=== PATIENT | female | born 1955 | race Caucasian/White ===

== ENCOUNTER → 2021-04-20 13:20 | Outpatient (CLI) | payer MEDICARE, SELFPAY ==
--- NOTE | ~2021-04-20 | MM_ITS ---
EXAMINATION: MM screening [facility] BI w wero HISTORY: Screening TECHNIQUE: Craniocaudal and mediolateral oblique 3-D tomosynthesis images were obtained and synthetic 2-D images were generated. CAD analysis was submitted and interpreted. COMPARISON: Comparison to multiple prior studies sequentially, with oldest reviewed study dated 03/2013. BREAST PARENCHYMAL COMPOSITION: There are scattered areas of fibroglandular density. FINDINGS: There is no evidence of suspicious mass, calcification, or architectural distortion to sugg est malignancy in either breast. There has been no suspicious interval change. IMPRESSION: 1. No mammographic evidence of malignancy. 2. Recommend routine screening mammography in one year. BI-RADS Category 1: Negative Reviewed, dictated and finalized at location A.
== END ==
PROVIDERS: Visit Provider Obstetrics & Gynecology
DX: Z12.31 Encounter for screening mammogram for malignant neoplasm of breast (principal)
CPT/HCPCS: 77063; 77067

== ENCOUNTER → 2022-06-22 15:16 | Outpatient (CLI) | payer MEDICARE, SELFPAY ==
--- NOTE | ~2022-06-22 | MM_ITS ---
EXAMINATION: MM screening [facility] BI w wero HISTORY: Screening mammogram TECHNIQUE: Craniocaudal and mediolateral oblique 3-D tomosynthesis images were obtained and synthetic 2-D images were generated. CAD analysis was submitted and interpreted. COMPARISON: 04/12/2021, 07/04/2019, 08/15/2017 bilateral screening mammogram examinations BREAST PARENCHYMAL COMPOSITION: There are scattered areas of fibroglandular density. FINDINGS: There is no evidence of suspicious mass, calcification, or architectural distortion to sugg est malignancy in either breast. There has been no suspicious interval change. IMPRESSION: 1. No mammographic evidence of malignancy. 2. Recommend routine screening mammography in one year. BI-RADS Category 1: Negative Reviewed, dictated and finalized at location A. EY AND MAPPING TECHNICIAN
--- NOTE | ~2022-06-22 | DEXA_ITS ---
Bone Density Report Name: ANJU HORNE Age: 67 Sex: Female Ethnicity: White Date of : 1955 Indication: postmenopausal; screening for osteoporosis; parental hip fracture; height loss; history of glucocorticoids; prior fracture; hysterectomy; Referring Provider: Justus, Job Root Study: Bone densitometry was performed. Exam Date: June 22, 2022 Accession number: [id number] Bone Density: Region BMD T-score Z-score Classification AP Spine (L1, L2) 1.314 3.0 5.0 Normal Femoral Neck (Right) 0.769 -0.7 1.0 Normal Total Hip (Right) 0.956 0.1 1.6 Normal World Health Organization criteria for BMD impression classify patients as: Normal (T-score at or above -1.0), Osteopenia (T-score between -1.0 and -2.5), or Osteoporosis (T-score at or below -2.5). 10-year Fracture Risk: FRAX not reported because: All T-scores for Spine Total, Hip Total, Femoral Neck at or above -1.0 Previous Exams: Region Exam Age BMD T-score BMD Change BMD Change Date g/cm2 vs Baseline vs Previous AP Spine(L1, L2) 06/22/2022 67 1.314 3.0 -0.085* -0.064* 07/04/2019 64 1.378 3.6 -0.021 -0.021 08/07/2009 54 1.399 3.8 Total Hip(Right) 06/22/2022 67 0.956 0.1 -0.158* 0.023 07/04/2019 64 0.933 -0.1 -0.181* -0.181* 08/07/2009 54 1.114 1.4 *Denotes significance at 95% confidence level, LSC for AP Spine = 0.022 g/cm2, LSC for Total Hip = 0.027 g/cm2 Clinical Information Provided by Patient: Has had a low trauma fracture Parent has had a hip fracture Has taken Glucocorticoids Has used the following medications: Vitamin D, MTV Has the following medical conditions: Hysterectomy Patient maximum height was 65.5 Menopause Age: 44 No regular weight bearing exercise Drinks caffeinated beverages Onset of menses at age 10 Number of children 2 Impression: The patient has normal bone mass. The patient has risk factors, including: parental hip fracture, previous fracture, history of glucocorticoid therapy. The BMD for the AP Spine(L1, L2) decreased, changing by -0.064 since the last DXA exam. Discussion: BONE DENSITY IS ABOVE THE MINIMUM DESIRABLE LEVEL AT ALL SKELETAL SITES TESTED. This patient?s bone mineral density is above the minimum desirable level (T-score -1.0 or better) at all sites measured. The patient should follow a healthful lifestyle (good nutrition with adequate calcium and vitamin D, and appropriate weight-bearing exercise). Follow-Up: Consider repeating this
== END ==
PROVIDERS: PCP Obstetrics & Gynecology; Visit Provider Obstetrics & Gynecology
DX: Z12.31 Encounter for screening mammogram for malignant neoplasm of breast (principal); Z78.0 Asymptomatic menopausal state
CPT/HCPCS: 77063; 77067; 77080

== ENCOUNTER 2024-03-21 12:08 | Outpatient (CLI) | payer MEDICARE, SELFPAY ==
[2024-03-21 12:27] LABS: Basophils Percent Auto 0.5 % (0.2-1.2); Eosinophils Absolute Auto 0.4 K/mm3 (0-0.3); Hematocrit 42.9 % (37.0-47.0); Hemoglobin 14.1 g/dL (12.0-15.0); Immature Granulocyte Absolute 0.03 K/mm3 (0.00-0.031); Immature Granulocyte Percent A 0.3 % (0-0.5); Lymphocytes Absolute Auto 1.87 K/mm3 (0.9-3.2); Lymphocytes Percent Auto 21.5 % (18.3-44.2); Mean Corpuscular HGB Conc 32.9 g/dl (32-36); Mean Corpuscular Hemoglobin 28.5 pg (26-34); Mean Corpuscular Volume 86.8 fl (80-100); Mean Platelet Volume 9.3 fl (7.4-10.4); Monocytes Absolute Auto 0.5 K/mm3 (0.1-0.6); Monocytes Percent Auto 5.3 % (2.6-8.5); Neutrophils Absolute Auto 5.9 K/mm3 (1.3-6.7); Neutrophils Percent Auto 67.4 % (45.5-73.1); Platelet Count Result 294 k/mm3 (150-375); Red Blood Count 4.94 M/mm3 (4.2-5.4); Red Cell Distribution Width 14.5 % (11.5-14.5); White Blood Count 8.7 K/mm3 (4.5-10.0)
[2024-03-21 12:49] LABS: Alanine Aminotransferase 19 U/L (6-35); Albumin Level 4.2 g/dL (3.5-5.1); Alkaline Phosphatase 72 U/L (38-126); Anion Gap 10 mmol/L (4-12); Aspartate Amino Transferase 36 U/L (14-36); Bilirubin,Total 0.8 mg/dL (0.2-1.3); Blood Urea Nitrogen 15 mg/dL (7-17); Calcium 8.8 mg/dL (8.4-10.2); Carbon Dioxide 27 mmol/L (22-30); Chloride 102 mmol/L (98-107); Estimated Glomerular Filt Rate > 60; Glucose 98 mg/dL (65-110); Potassium 4.3 mmol/L (3.4-5.0); Sodium 139 mmol/L (137-145)
== END 2024-03-21 12:09 | disposition home or self-care (01) ==
LOC: ANHLAB 12:13
PROVIDERS: PCP Internal Medicine; Visit Provider Physician Assistant Surgical
DX: M17.0 Bilateral primary osteoarthritis of knee (principal); Z79.1 Long term (current) use of non-steroidal anti-inflammatories (NSAID)
CPT/HCPCS: 36415; 80053; 85025

== ENCOUNTER 2024-05-24 08:02 | Outpatient (CLI) | payer MEDICARE, SELFPAY ==
[2024-05-24 08:36] LABS: Alanine Aminotransferase 17 U/L (6-35); Albumin Level 3.7 g/dL (3.5-5.1); Alkaline Phosphatase 56 U/L (38-126); Anion Gap 7 mmol/L (4-12); Aspartate Amino Transferase 31 U/L (14-36); Bilirubin,Total 0.7 mg/dL (0.2-1.3); Blood Urea Nitrogen 15 mg/dL (7-17); Calcium 8.5 mg/dL (8.4-10.2); Carbon Dioxide 27 mmol/L (22-30); Chloride 106 mmol/L (98-107); Cholesterol 143 mg/dL (0-200); Estimated Glomerular Filt Rate > 60; Glucose 101 mg/dL (65-110); HDL Direct 46 mg/dL; Sodium 140 mmol/L (137-145); Triglycerides 102 mg/dL (<150)
[2024-05-24 08:47] LABS: LDL Cholesterol Direct 53 mg/dL
[2024-05-24 08:51] LABS: Hemoglobin A1C 5.6 % (<5.7)
[2024-05-24 09:18] LABS: Vitamin D 25 Hydroxy 30.8 ng/mL
== END 2024-05-24 08:03 | disposition home or self-care (01) ==
LOC: ANHLAB 08:05
PROVIDERS: PCP Internal Medicine; Visit Provider Internal Medicine
DX: E55.9 Vitamin D deficiency, unspecified (principal); I10 Essential (primary) hypertension; R73.9 Hyperglycemia, unspecified
CPT/HCPCS: 36415; 80053; 80061; 82306; 83036

== ENCOUNTER 2024-06-12 12:22 | Outpatient (CLI) | payer MEDICARE, SELFPAY ==
--- NOTE | ~2024-06-12 | XR_ITS ---
CHEST RADIOGRAPH, PA AND LATERAL CLINICAL HISTORY: COUGH x 3 mos . COMPARISON: None available TECHNIQUE: PA and lateral views of the chest. FINDINGS The cardiomediastinal silhouette is partially obscured. Increased interstitial markings are identified bilaterally, findings suggesting mild pulmonary vascul ar congestion. Patchy opacification of the left mid to lower lung field, findings suggesting early infiltrate for wh ich clinical correlation is needed. The remainder of the lungs are clear. Visualized osseous structures and soft tissues are unremarkable. IMPRESSION: Mild pulmonary vascular congestion with patchy opacification in the left mid to lower lung field for which an early infiltrate is suspected. Reviewed, dictated and finalized at location A. CHER SULFITE PULP
== END 2024-06-12 12:23 | disposition home or self-care (01) ==
PROVIDERS: PCP Internal Medicine; Visit Provider Internal Medicine
DX: R91.8 Other nonspecific abnormal finding of lung field (principal); R05.3 Chronic cough
CPT/HCPCS: 71046

== ENCOUNTER 2024-06-14 12:23 | Outpatient (CLI) | payer MEDICARE, SELFPAY ==
[2024-06-14 13:29] LABS: NT Pro B Type Natriuretic Pept 305 pg/mL (19.9-100)
[2024-06-16 04:38] LABS: Alpha-1-Antitrypsin, QN 165 mg/dL (83-199)
[2024-06-18 15:13] LABS: NIL 0.03 IU/mL; Quantiferon TB Plus, 1T NEGATIVE (NEGATIVE)
== END 2024-06-14 12:24 | disposition home or self-care (01) ==
PROVIDERS: PCP Internal Medicine; Visit Provider Nurse Practitioner
DX: R06.09 Other forms of dyspnea (principal)
CPT/HCPCS: 36415; 82103; 83880; 86480; 89190

== ENCOUNTER 2024-06-28 14:43 | Outpatient (CLI) | payer MEDICARE, SELFPAY ==
--- NOTE | 2024-07-01 20:14 | P.PCNPFT_ITS ---
PFT Procedure Performed PFT Procedure Performed Spirometry with Pre/Post Bronchodilator Plethysmography (Lung Vol) Diffusing Cap (DLCO) Flow Vol Loop PFT Interpretation DOS: 06/28/2024 REQUESTING: Roshni Delacruz NP REASON FOR TESTING: Dyspnea PULMONARY FUNCTION TESTS Results are reliable and reproducible. Repeatability of spirometry FEV1 maneuver pre and post bronchodilator is Grade B. Spirometry: The pre-bronchodilator FEV1 is 1.25 L, 56%, decreased. The pre- bronchodilator FVC is 1.61 L, 55%, decreased. The FEV1/FVC ratio is 78%, normal. After bronchodilator, the FEV1 is 1.27 L, 56% +2%. The post- bronchodilator FVC is 1.57 L, 54% -2%. The FEV1/FVC ratio is 81%. Lung volumes: The total lung capacity is 4.03 L, 78%, decreased, consistent with a restrictive pattern. The residual volume is 2.38 L, 106%, normal. The RV/TLC is 59%, elevated consistent with air trapping. Airway resistance is normal. Diffusion: DLCO is 8.7, 42%, severely decreased. The DLCO/VA is 3.75, 89%, normal. Flow volume loop: The flow volume loop has a reduced size consistent with restriction. IMPRESSION: This study shows a mild restrictive ventilatory impairment without obstruction, no response to bronchodilator, mild air trapping, and a severe diffusion impairment which normalizes for alveolar volume. No prior studies for comparison. Bing Stroud MD
== END 2024-06-28 14:44 | disposition home or self-care (01) ==
LOC: ANHPFT 14:46
PROVIDERS: PCP Internal Medicine; Visit Provider Nurse Practitioner
DX: R05.3 Chronic cough (principal)
CPT/HCPCS: 94060; 94726; 94729

== ENCOUNTER 2024-07-04 12:01 | Outpatient (CLI) | payer MEDICARE, SELFPAY ==
--- NOTE | ~2024-07-04 | XR_ITS ---
EXAMINATION: XR sinus min 3V DATE: 07/04/2024 12:21 INDICATION: Fever. Cough and shortness of breath. TECHNIQUE: 5 views of the paranasal sinuses were obtained. COMPARISON: None. FINDINGS: Alignment is normal. No fracture. There is mucosal thickening in right maxillary sinus. IMPRESSION: 1. Mucosal thickening in right maxillary sinus. Reviewed, dictated and finalized at location A. FIELD PERSON
== END 2024-07-04 12:02 | disposition home or self-care (01) ==
PROVIDERS: PCP Internal Medicine; Visit Provider Nurse Practitioner
DX: J32.0 Chronic maxillary sinusitis (principal); R05.3 Chronic cough
CPT/HCPCS: 70220

== ENCOUNTER 2024-07-11 12:56 | Outpatient (CLI) | payer MEDICARE, SELFPAY ==
--- NOTE | ~2024-07-11 | MM_ITS ---
EXAMINATION: MM screening [facility] BI w wero HISTORY: Screening TECHNIQUE: Craniocaudal and mediolateral oblique 3-D tomosynthesis images were obtained and synthetic 2-D images were generated. CAD analysis was submitted and interpreted. COMPARISON: Comparison to multiple prior studies sequentially, with oldest reviewed study dated 06/25. BREAST PARENCHYMAL COMPOSITION: Not dense: There are scattered areas of fibroglandular density. FINDINGS: There is no evidence of suspicious mass, calcification, or architectural distortion to sugg est malignancy in either breast. There has been no suspicious interval change. IMPRESSION: 1. No mammographic evidence of malignancy. 2. Recommend routine screening mammography in one year. BI-RADS Category 1: Negative Reviewed, dictated and finalized at location B. RATORY AIDE
--- NOTE | ~2024-07-11 | DEXA_ITS ---
Bone Density Report Name: ANJU HORNE Age: 69 Sex: Female Ethnicity: White Date of : 1955 Indication: postmenopausal; screening for osteoporosis; parental hip fracture; prior fracture; hysterectomy; Referring Provider: TUNG, STAN Gross Study: Bone densitometry was performed. Exam Date: July 11, 2024 Accession number: [id number] Bone Density: Region BMD T-score Z-score Classification AP Spine(L1, L2, L3) 1.351 3.0 5.2 Normal Femoral Neck (Right) 0.745 -0.9 0.9 Normal Total Hip (Right) 0.964 0.2 1.8 Normal World Health Organization criteria for BMD impression classify patients as: Normal (T-score at or above -1.0), Osteopenia (T-score between -1.0 and -2.5), or Osteoporosis (T-score at or below -2.5). Clinical Information Provided by Patient: Has had a low trauma fracture Parent has had a hip fracture Has used the following medications: Vitamin D, Calcium Has the following medical conditions: Hysterectomy Patient maximum height was 63 No regular weight bearing exercise Drinks caffeinated beverages Onset of menses at age 10 Number of children 2 Impression: The patient has normal bone mass. The patient has risk factors, including: parental hip fracture, previous fracture. Discussion: BONE DENSITY IS ABOVE THE MINIMUM DESIRABLE LEVEL AT ALL SKELETAL SITES TESTED. This patient?s bone mineral density is above the minimum desirable level (T-score -1.0 or better) at all sites measured. The patient should follow a healthful lifestyle (good nutrition with adequate calcium and vitamin D, and appropriate weight-bearing exercise). Follow-Up: Consider repeating this study in 5 years or sooner if there is some new clinical indication. Reported by: CELINA on 07/11/2024 1:30:00 PM. Reviewed, dictated and finalized at location A.
== END 2024-07-11 12:57 | disposition home or self-care (01) ==
LOC: CHSIMG 12:58
PROVIDERS: PCP Internal Medicine; Visit Provider Internal Medicine
DX: Z12.31 Encounter for screening mammogram for malignant neoplasm of breast (principal); Z78.0 Asymptomatic menopausal state; Z13.820 Encounter for screening for osteoporosis
CPT/HCPCS: 77063; 77067; 77080

== ENCOUNTER 2024-08-22 13:02 | Outpatient (CLI) | payer MEDICARE, SELFPAY ==
--- NOTE | ~2024-08-22 | CT_ITS ---
EXAMINATION: CT sinus wo con DATE: 08/22/2024 13:33 INDICATION: Chronic sinusitis. TECHNIQUE: Computed tomography (CT) of the paranasal sinuses was performed without intravenous contra st. Iterative reconstruction technique was employed. The dose-length product was 295.03 mGy-cm. COMPARISON: Sinuses radiographs 07/04/2024 FINDINGS: The frontal sinuses are clear. There is mild mucosal thickening in the bilateral ethmoid si nuses. The sphenoid sinuses are clear. There is dependent fluid and mild mucosal thickening in right maxillary sinus. There is mild mucosal thickening in left maxillary sinus. Right ostiomeatal unit is occluded. Left ostiomeatal unit is patent. There are bilateral Fredo cells. The middle turbinates ar e partially paradoxical. There is rightward deviation of the nasal septum. IMPRESSION: 1. Acute sinusitis. 2. Rightward deviation of the nasal septum. Reviewed, dictated and finalized at location A. [facility]
--- OUTSIDE RECORDS SUMMARY | 2024-08-22 13:50 | XMS_ITS | Continuity of Care Document ---
Author Organization [facility] Address [address] [place] [address] Phone Care Team Providers Care Bottle Selector Name Role Phone Jason Ring DO Unavailable Unavailable Advance Directives Directive Yes / No Effective Date File Name No Information Encounters Encounter Description Practice Location Reason(s) For Visit Diagnoses Date Provider Providers Copied on Encounter [facility], [address], [place], [place], [id number], tel:[phone] [facility] No Information Jhonathan Gonsales. [address] [place], [address], . tel:[phone] Referring Provider: Erich Baldwin, [address], [place], [address]. tel:[phone] Family History Family Member Type Diagnosis Age At Onset No Information Payers Payer name Insurance type Covered constitution party ID Authoriza tion(s) No Information Social History Type Description Quantity Date Captured Comments Sex Female Smoking Status No Information Chief Complaint And Reason For Visit No Information Reason For Referral Reason For Referral No Information History Of Present Illness Encounter Date Complaint History Of Prese nt Illness No Information Functional Status Date Functional Assessmen t No Information Instructions Date Instruction Additional Infor mation No Information Assessments Type Assessment Date No Information Patient Care Teams Name Effective Dates (start - stop) Status Members No Information
--- OUTSIDE RECORDS SUMMARY | 2024-08-22 13:50 | XMS_ITS | Clinical Summary ---
Author Organization [facility] [employer] Address [address] [place] [address] Care Team Providers Care Panel Cutter Name Role Phone Raul Fernandes MD Primary Care Provider [phone] Job Jerome MD Unavailable [phone] Source Comments [facility],non-owned Affiliates and Associated Physician Practices is amultiple site organization consisting of ambulatory clinics and hospital sitesin [place], [place], [place] and [place]. This disclosure is being madepursuant to the Care Everywhere program and may not contain all information available regarding this patient. Last updated 18.[facility] Allergies Active Allergy Reactions Criticality Noted Date Comments Ciprofloxacin Unknown 06/17/2019 Medications * Be aware that medications may not be up to date on this document. Alwaysverify current medications with the patient. Medication Sig Dispensed Refills Start Date End Date Status diclofenac potassium (CAMBIA) 50 MG powder pack 06/27/2019 Active estradiol (Estrace) 0.1 MG/GM vaginal cream Insert 1 g into the vagina every 7 days 42.5 g 1 04/06/2022 Active Active Problems Problem Noted Date Diagnosed Date Dyspareunia in female 07/21/2017 Atrophic vaginitis 07/21/2017 Family History Medical History Relation Name Comments Cancer - Uterine Paternal Grandmother Relation Name Status Comments Paternal Grandmother Social History Tobacco Use Types Packs/Day Years Used Date Smoking Tobacco: Former Smokeless Tobacco: Never Alcohol Use Standard Drinks/Week Comments Yes 1 (1 standard drink = 0.6 oz pur e alcohol) social PHQ-2 Answer Date Recorded PHQ2 TOTAL SCORE 0 04/03/2022 Sex and Gender Information Value Date Recorded Sex Assigned at Not on file Gender Identity Not on file Sexual Orientation Not on file Last Filed Vital Signs Vital Sign Reading Time Taken Comments Blood Pressure 160/80 04/06/2022 2:37 PM CDT Pulse - - Temperature - - Respiratory Rate - - Oxygen Saturation - - Inhaled Oxygen Concentration - - Weight 97.1 kg (214 lb) 04/06/2022 2:37 PM CDT Height 162.6 cm (5' 4 ) 04/06/2022 2:37 PM CDT Body Mass Index 36.73 04/06/2022 2:37 PM CDT Plan of Treatment Health Maintenance Due Date Last Done Comments COLOGUARD (AGES 45-75) - COLON CA SCREENING 1955 COLON MONITORING 1955 COLONOSCOPY - COLON CA SCREENING 1955 CT COLONOGRAPHY - COLON CA SCREENING 1955 Colorectal Cancer Screening 1955 FIT - COLON CA SCREENING 1955 FLEX SIG - COLON CA SCREENING 1955 LIPID TESTING 1955 HEPATITIS C SCREENING 03/21/1971 DTAP/TDAP/TD VACCINES (1 - Tdap) 1972 PNEUMOCOCCAL VACCINE 50+ (1 of 1 - PCV) 2003 ZOSTER VACCINE (1 of 2) 2003 SCREENING FOR DIABETES 07/21/2017 COVID-19 VACCINE ( - season) 2024 08/05/2021, 10/13/2020, 09/02/2020 INFLUENZA VACCINE (#1) 2024 MAMMOGRAM 06/22/2024 06/22/2022, 03/25, 08/15/2017 (Done Outside Per Report), Additional history exists DEPRESSION SCREENING 07/24/2024 04/06/2022 MEDICARE AWV ? CALENDAR YEAR 2024 Respiratory Syncytial Virus (RSV) Vaccine Pt: or over 60 yrs (1 - 1-dose 75+ series) 2028 BONE DENSITY TESTING Completed 06/22/2022, 07/04/20 19 HEPATITIS B VACCINE Aged Out No longe r eligible based on patient's age to complete this topic HIB VACCINE Aged Out No longer eligi ble based on patient's age to complete this topic HPV VACCINE Aged Out No longer eligi ble based on patient's age to complete this topic MENINGOCOCCAL (Group B) VACCINE Aged Out No longer eligible based on patient's age to complete this topic MENINGOCOCCAL VACCINE Aged Out No opal bertha eligible based on patient's age to complete this topic Procedures Procedure Name Priority Date/Time Associated Diagnosis Comments DEXA BONE DENSITY 2 SITES Routine 06/22/2022 MAMMO BILAT SCREENING Routine 06/22/2022 Well woman exam from Last 3 Months or Most Recently Relevant to Health Maintenance Results * MAMMO BILAT SCREENING (06/22/2022) Anatomical Region Laterality Modality Breast Bilateral Mammography 06/22/2022 Job Jerome MD MAMMO ORDERABLES * DEXA BONE DENSITY 2 SITES (06/22/2022) Anatomical Region Laterality Modality Other Job Jerome MD DEXA ORDERABLES from Last 3 Months or Most Recently Relevant to Health Maintenance Care Teams Panel Cutter Relationship Specialty Start Date End Date Raul Fernandes MD [address] [place] [address] PCP - General Internal Medicine 06/17/19 Job Jerome MD [address] [place] [address] Obstetrics and Gynecology 01/18/21
--- OUTSIDE RECORDS SUMMARY | 2024-08-22 13:51 | XMS_ITS | CONTINUITY OF CARE DOCUMENT ---
Author Name milvianico milvianico Address Unknown Organization [facility] Address [address] [place] [address] Phone [phone] Care Team Providers Care Box Loader Name Role Phone Erick Martinez MD Unavailable BANAL PAPER INSPECTOR-C, TESS L Unavailable [phone] BANAL PAPER INSPECTOR-C, TESS L Unavailable PROBLEMS Condition Status Date Provider Notes Persistent cough active Erick Martinez MD Dyspnea on exertion active Erick Martinez MD Preoperative cardiovascular examination active Erick Martinez MD EKG active Erick Martinez MD Family History of Hypertension: active Mukund Martinez MD ENCOUNTERS Date Type Provider Location Encounter Diag nosis - In-person encounter Office Visit Erick Martinez MD [facility] Dyspnea on exertionPersistent cough - In-person encounter Office Visit Erick Martinez MD [facility] Family History of Hypertension:EKGPreoperat heather cardiovascular examination VITAL SIGNS Date Observation Value Provider Body Mass Index (Ratio) 32.09 kg/m2 Mukund Martinez MD blood pressure, diastolic 75 mm[Hg] Gracie Madrigal blood pressure, systolic 132 mm[Hg] Katie Madrigal oxygen saturation, oximetry 94 % Oksana Madrigal pulse rate 70 /min Oksana Madrigal respiratory rate E&M 12 /min Oksana Madrigal weight E&M 187 [lb_av[facility] [in_i[facility], cuff size regular An renae Madrigal Body Mass Index (Ratio) 37.42 kg/m2 Mukund Martinez MD respiratory rate E&M 18 /min [facility] blood pressure, resting No [facility] blood pressure, diastolic 88 mm[Hg] To [facility] blood pressure, systolic 131 mm[Hg] Ton [facility] oxygen saturation, oximetry 95 % [facility] pulse rate 93 /min [facility] weight E&M 218 [lb_av] [facility] height E&M 64 [in_i] Tonsrhea Cuevas ALLERGIES No Known Drug Allergies HISTORY OF MEDICATION USE Medication Status Instructions Dates Provider Indications Com ments DICLOFENAC SODIUM 50 MG ORAL TABLET DELAYED RELEASE active TAKE 1 TABLET BY MOUTH TWICE A DAY WITH MEALS 2 Bonita Cuevas #90, 45 days supply, Prescribed by [facility], Filled 08/04/2019 SOCIAL HISTORY Date Observation Value Provider drug use no Erick Martinez MD alcohol use, average drinks per day social Erick Martinez MD alcohol use yes Erick Martinez MD smoking status Never smoker Erick Martinez MD number of grandchildren Erick Martinez MD U stephanie Martinez MD drug use no Erick Martinez MD alcohol use, average drinks per day social Erick Martinez MD alcohol use yes Erick Martinez MD social history E&M S moking History: P atient has never smoked. Erick Martinez MD social history reviewed E&M revi ewed - no changes required Erick Martinez MD smoking status Never smoker Bonita Cuevas FAMILY HISTORY Family Member Condition Father Family History of Co ngestive Heart Failure: Father Family History of Hy pertension: Father Family History of De pression: Mother Family History of De pression: INSURANCE PROVIDERS Payer name Policy type / Coverage type [place] red constitution party ID [employer] MEDICARE ADVANTAGE ST 0 003 (HMO POS) Medicare [id number] ADVANCE DIRECTIVES Name Date DISCUSSED - NO DECISION MADE TREATMENT PLAN Date Name Performer Cardiology:Awaiting NTProBNP results, has improved since start of cough. Erick Martinez MD Cardiology:has had p ersistent cough for past several months. treated with antibiotics. Believes increased NTProBNP, Awaiting results. has improved since Erick Martinez MD Cardiology:slightly elevated in office today, otherwise stable. Erick Martinez MD Cardiology:Patient i s asymptomatic and her EKG is unremarkable. She is clear, low risk for surgery. Erick Martinez MD HISTORY OF PROCEDURES Procedure Date Procedure Name Provider Procedure Notes S tatus EKG Erick Martinez MD completed EKG Erick Martinez MD completed
--- OUTSIDE RECORDS SUMMARY | 2024-08-22 13:51 | XMS_ITS | Referral Summary ---
Author Organization [facility] [employer] Address [address] [place] [address] Care Team Providers Care Mailing Machine Assistant Name Role Phone Raul Fernandes MD Primary Care Provider [phone] Job Jerome MD Unavailable [phone] Source Comments [facility],non-owned Affiliates and Associated Physician Practices is amultiple site organization consisting of ambulatory clinics and hospital sitesin [place], [place], [place] and [place]. This disclosure is being madepursuant to the Care Everywhere program and may not contain all information available regarding this patient. Last updated 18.[facility] [employer] Allergies Active Allergy Reactions Criticality Noted Date [...] Dyspareunia in female 07/21/2017 Atrophic vaginitis 07/21/2017 Social History Tobacco Use Types Packs/Day Years [...] 04/06/2022 2:37 PM CDT Plan of Treatment Not on file Procedures Procedure Name Priority Date/Time Associated Diagnosis [...] Recently Relevant to Health Maintenance Care Teams Mailing Machine Assistant Relationship Specialty Start Date End Date Raul Fernandes MD [address] [place] [address] PCP - General Internal Medicine 06/17/19 Job Jerome MD [address] [place] [address] Obstetrics and Gynecology 01/18/21
--- OUTSIDE RECORDS SUMMARY | 2024-08-22 13:51 | XMS_ITS | Patient Health Summary ---
Author Organization [facility] Address [address] [place] [address] Care Team Providers Care Junior Account Executive Name Role Phone Raul Fernandes MD Primary Care Provider [phone] Job Jerome MD Unavailable [phone] Note from [facility],non-owned Affiliates and Associated Physician Practices is amultiple site organization consisting of ambulatory clinics and hospital sitesin [place], [place], [place] and [place]. This disclosure is being madepursuant to the Care Everywhere program and may not contain all informatio navailable regarding this patient. Last updated 18.[facility] Allergies * Ciprofloxacin(Unknown) Medications * Be aware that medications may not be up to date on this document. Alwaysverify current medications with the patient. * diclofenac potassium (CAMBIA) 50 MG powder pack(Started 06/27/2019) * estradiol (Estrace) 0.1 MG/GM vaginal cream(Started 04/06/2022) Insert 1 g into the vagina every 7 days 1 refill by 04/06/2023 Active Problems Problem Noted Date Diagnosed Date [...] Mass Index 36.73 04/06/2022 2:37 PM CDT Procedures * DEXA BONE DENSITY 2 SITES(Performed 06/22/2022) * MAMMO BILAT SCREENING(Performed 06/22/2022) Performed for Well woman exam * PAP IG LB(Performed 04/06/2022) Performed for Well woman exam * OCCULT BLOOD FECES 1-3 SCREEN POINT OF CARE (AMB)(Performed 04/06/2022) Performed for Colon cancer screening * MAMMO BILAT SCREENING(Performed 04/20/2021) Performed for Well woman exam * PAP IG LB(Performed 01/18/2021) Performed for Well woman exam * OCCULT BLOOD FECES 1-3 SCREEN POINT OF CARE (AMB)(Performed 01/18/2021) Performed for Colon cancer screening * DEXA BONE DENSITY 2 SITES(Performed 07/04/2019) * PAP IG LB(Performed 06/17/2019) Performed for Well woman exam * OCCULT BLOOD FECES 1-3 SCREEN POINT OF CARE (AMB)(Performed 06/17/2019) Performed for Colon cancer screening * PAP IG LB + HPV HR(Performed 07/21/2017) Performed for Well woman exam * OCCULT BLOOD FECES 1-3 SCREEN POC (AMB) STL(Performed 07/21/2017) Performed for Colon cancer screening * MAMMO SCREENING BILATERAL(Performed 08/03/2016) * PAP IG LB + HPV HR(Performed 07/20/2016) Performed for Well woman exam * OCCULT BLOOD FECES 1-3 SCREEN POC (AMB) STL(Performed 07/20/2016) Performed for Colon cancer screening Results * MAMMO BILAT SCREENING (06/22/2022) Only the most recent of2 resultswithin the time period is included. Anatomical Region Laterality Modality Breast Bilateral Mammography 06/22/2022 Job Jerome MD MAMMO ORDERABLES * DEXA BONE DENSITY 2 SITES (06/22/2022) Only the most recent of2 resultswithin the time period is included. Anatomical Region Laterality Modality Other Job Jerome MD DEXA ORDERABLES * PAP IG LB (04/06/2022 3:33 PM CDT) Only the most recent of3 resultswithin the time period is included. Diagnosis [facility] ACCOUNT BILL Comment:NEGATIVE FOR INTRAEP ITHELIAL LESION OR MALIGNANCY. Specimen Adequacy [facility] ACCOUNT BILL Comment: Satisfactory for evaluation. ??Endocervical and/or squamous metaplastic cells (endocervical component) are present. Clinician Provided ICD10 [facility] ACCOUNT BILL Comment: Z01.419 Z12.11 Performed by [facility] ACCOUNT BILL Comment:Yuni Ignacio Cyto technologist (ASCP) Comment . [facility] ACCOUNT BILL Note [facility] ACCOUNT BILL Comment: The Pap smear is a screening test designed to aid in the detection of premalignant and malignant conditions of the uterine cervix. ??It is not a diagnostic procedure and should not be used as the sole means of detecting cervical cancer. ??Both false-positive and false-negative reports do occur. ? . IGLBP CPT Code Automation [facility] ACCOUNT BILL Comment: This liquid based ThinPrep(R) pap test was screened with the use of an image guided system. Pathology/Cytolog y ENTIRE VAGINA / Unknown 04/06/2022 3:33 PM CDT 04/07/2022 Narrative [facility] ACCOUNT BILL - 04/13/2022 1:09 PM CDT No. of containers..01 ThinPrep Vial Resulting Agency Comment Lab Testing performed at: [facility] [address] ??[employer] [place] [id number] Job Jerome MD LAB - PATHOLOGY/CYT OLOGY ORDERABLES [facility] ACCOUNT BILL [address] [place] [address] * OCCULT BLOOD FECES 1-3 SCREEN POINT OF CARE (AMB) (04/06/2022 3:10 PM CDT) Only the most recent of3 resultswithin the time period is included. Occult Blood 1 neg Negative [facility] Occult Blood 2 [facility] Occult Blood 3 [facility] Card Lot Number [id number] Card Exp Date [facility] Developer Lot Number [facility] Developer Expiration Date [facility] QC Negative [facility] QC Positive [facility] Stool STOOL SPECIMEN / Unknown 04/06/2022 3:10 PM CDT Job Jerome MD LAB - POINT OF CARE ORDERABLES [facility] [address], [facility] [address] [phone] * PAP IG LB + HPV HR (07/21/2017 10:20 AM AUTOMOTIVE PARTS PERSON) Only the most recent of2 resultswithin the time period is included. Diagnosis [facility] ACCOUNT BILL Comment: NEGATIVE FOR INTRAEPITHELIAL LESION AND MALIGNANCY. CELLULAR CHANGES ASSOCIATED WITH ATROPHY ARE PRESENT. Specimen Adequacy [facility] ACCOUNT BILL Comment: Satisfactory for evaluation. ??Endocervical component may not be distinguished in cases of atrophy. Clinician Provided ICD10 [facility] ACCOUNT BILL Comment: Z01.419 Z12.11 N94.10 N95.2 Performed by [facility] ACCOUNT BILL Comment:Yuni Ignacio Cyto technologist (ASCP) Comment . [facility] ACCOUNT BILL Note [facility] ACCOUNT BILL Comment: The Pap smear is a screening test designed to aid in the detection of premalignant and malignant conditions of the uterine cervix. ??It is not a diagnostic procedure and should not be used as the sole means of detecting cervical cancer. ??Both false-positive and false-negative reports do occur. ? . IGLBP CPT Code Automation [facility] ACCOUNT BILL Comment: This liquid based ThinPrep(R) pap test was screened with the use of an image guided system. Human papillomavirus High Risk Negative Negative [facility] ACCOUNT BILL Comment: This high-risk HPV test detects thirteen high-risk types (16/18/31/33/35/39/45/51/52/56/58/59/68) without differentiation. ?. Pathology/Cytolog y ENTIRE VAGINA / Unknown 07/21/2017 10:20 AM AUTOMOTIVE PARTS PERSON 07/21/2017 Narrative [facility] ACCOUNT BILL - 07/26/2017 6:08 PM AUTOMOTIVE PARTS PERSON No. of containers..01 ThinPrep Vial Resulting Agency Comment [facility] [address] [facility] ??[place] [phone] Job Jerome MD LAB - PATHOLOGY/CYT OLOGY ORDERABLES [facility] ACCOUNT BILL [address] [place] [address] * OCCULT BLOOD FECES 1-3 SCREEN POC (AMB) STL (07/21/2017) Only the most recent of2 resultswithin the time period is included. Occult Blood 1 neg Negative Occult Blood 2 Negative Occult Blood 3 Negative Card Lot Number z Card Exp Date z Yes Developer Lot Number z Developer Expiration Date z Yes QC Negative z Negative QC Positive z Stool STOOL SPECIMEN / Unknown 07/21/2017 Job Jerome MD LAB - POINT OF CARE ORDERABLES * MAMMO SCREENING BILATERAL (08/03/2016) Anatomical Region Laterality Modality Breast Mammography Scanned Document MAMMO ORDERABLES Care Teams Junior Account Executive Relationship Specialty Start Date End Date Raul Fernandes MD [address] [facility] [address] [place] [address] PCP - General Internal Medicine 06/17/19 oJb Jerome MD [address] [facility] [address] [place] [address] Obstetrics and Gynecology 01/18/21
== END 2024-08-22 13:03 | disposition home or self-care (01) ==
PROVIDERS: PCP Internal Medicine; Visit Provider Nurse Practitioner Family
DX: J01.90 Acute sinusitis, unspecified (principal); J34.2 Deviated nasal septum
CPT/HCPCS: 70486

== ENCOUNTER 2024-09-13 13:32 | Outpatient (CLI) | payer MEDICARE, SELFPAY ==
--- OUTSIDE RECORDS SUMMARY | 2024-09-13 13:42 | XMS_ITS | Referral Summary ---
Author Organization [facility] [employer] Address [address] [address] [place] [address] Care Team Providers Care Armored Cable Machine Operator Name Role Phone Raul Fernandes MD Primary Care Provider [phone] Job Jerome MD Unavailable [phone] Source Comments [facility],non-owned Affiliates and Associated Physician Practices is amultiple site organization consisting of ambulatory clinics and hospital sitesin [place], [place] and [place]. This disclosure is being madepursuant to the Care Everywhere program and may not contain all information available regarding this patient. Last updated 18.[facility] Allergies Active Allergy Reactions Criticality Noted Date [...] Recently Relevant to Health Maintenance Care Teams Armored Cable Machine Operator Relationship Specialty Start Date End Date Raul Fernandes MD [address] [facility] [address] [place] [address] PCP - General Internal Medicine 06/17/19 Job Jerome MD [address] [facility] [address] [place] [address] Obstetrics and Gynecology 01/18/21
--- OUTSIDE RECORDS SUMMARY | 2024-09-13 13:42 | XMS_ITS | Clinical Summary ---
Author Organization [facility] [employer] Address [address] [place] [address] Care Team Providers Care Floor Steward/Stewardess Name Role Phone Raul Fernandes MD Primary Care Provider [phone] Job Jerome MD Unavailable [phone] Source Comments [facility],non-owned Affiliates and Associated Physician Practices is amultiple site organization consisting of ambulatory clinics and hospital sitesin [place], [place], [place] and [place]. This disclosure is being madepursuant to the Care Everywhere program and may not contain all information available regarding this patient. Last updated 18.[facility] [employer] Allergies Active Allergy Reactions Criticality Noted Date [...] exists DEPRESSION SCREENING 07/24/2024 04/06/2022 MEDICARE AWV CALENDAR YEAR 2024 Respiratory Syncytial Virus (RSV) [...] Recently Relevant to Health Maintenance Care Teams Floor Steward/Stewardess Relationship Specialty Start Date End Date Raul Fernandes MD [address] [facility] 4 [place] [address] PCP - General Internal Medicine 06/17/19 Job Jerome MD [address] [facility] [address] [place] [address] Obstetrics and Gynecology 01/18/21
--- OUTSIDE RECORDS SUMMARY | 2024-09-13 13:42 | XMS_ITS | Patient Health Summary ---
Author Organization [facility] Address [address] [place] [place] [address] Care Team Providers Care Freelance Digital Project Manager Name Role Phone Raul Fernandes MD Primary Care Provider [phone] Job Jerome MD Unavailable [phone] Note from [facility],non-owned Affiliates and Associated Physician Practices is amultiple site organization consisting of ambulatory clinics and hospital sitesin [place], [place], [place] and [place]. This disclosure is being madepursuant to the Care Everywhere program and may not contain all informatio navailable regarding this patient. Last updated 18.[facility] Allergies * Ciprofloxacin(Unknown) Medications * Be aware [...] [facility] ACC[facility] BILL Comment: Satisfactory for evaluation. Endocervical and/or squamous metaplastic cells (endocervical component) are present. Clinician Provided ICD10 [facility] ACCOUNT BILL Comment: Z01.419 Z12.11 Performed by [facility] ACCOUNT BILL Comment:Yuni Ignacio Cyto technologist (ASCP) Comment . [facility] ACCOUNT BILL Note [facility] ACCOUNT BILL Comment: The Pap smear is a screening test designed to aid in the detection of premalignant and malignant conditions of the uterine cervix. It is not a diagnostic procedure and should not be used as the sole means of detecting cervical cancer. Both false-positive and false-negative reports do occur. . IGLBP CPT Code Automation [facility] ACCOUNT BILL Comment: This liquid based ThinPrep(R) pap test was screened with the use of an image guided system. Pathology/Cytolog y ENTIRE VAGINA / Unknown 04/06/2022 3:33 PM CDT 04/07/2022 Narrative [facility] ACCOUNT BILL - 04/13/2022 1:09 PM CDT No. of containers..01 ThinPrep Vial Resulting Agency Comment Lab Testing performed at: [employer] [phone] Job Jerome MD LAB - PATHOLOGY/CYT OLOGY ORDERABLES [facility] ACCOUNT BILL [address] [place] [address] * OCCULT BLOOD FECES 1-3 SCREEN POINT OF CARE (AMB) (04/06/2022 3:10 PM CDT) Only the most recent of3 resultswithin the time period is included. Occult Blood 1 neg Negative [facility] Occult Blood 2 [facility] Occult Blood 3 [facility] Card Lot Number [facility] Card Exp Date [facility] Developer Lot Number [id number] Developer Expiration Date [facility] QC Negative [facility] QC Positive [facility] Stool STOOL SPECIMEN / Unknown 04/06/2022 3:10 PM CDT Job Jerome MD LAB - POINT OF CARE ORDERABLES [facility] [address], [facility] [address] [phone] * PAP IG LB + HPV HR (07/21/2017 10:20 AM MOTOR MECHANIC) Only the most recent of2 resultswithin the time period is included. Diagnosis [facility] ACCOUNT BILL Comment: NEGATIVE FOR INTRAEPITHELIAL LESION AND MALIGNANCY. CELLULAR CHANGES ASSOCIATED WITH ATROPHY ARE PRESENT. Specimen Adequacy [facility] ACCOUNT BILL Comment: Satisfactory for evaluation. Endocervical component may not be distinguished in cases of atrophy. Clinician Provided ICD10 [facility] ACCOUNT BILL Comment: Z01.419 Z12.11 N94.10 N95.2 Performed by [facility] ACCOUNT BILL Comment:Yuni Ignacio, Cyto technologist (ASCP) Comment . [facility] ACCOUNT BILL Note [facility] ACCOUNT BILL Comment: The Pap smear is a screening test designed to aid in the detection of premalignant and malignant conditions of the uterine cervix. It is not a diagnostic procedure and should not be used as the sole means of detecting cervical cancer. Both false-positive and false-negative reports do occur. . IGLBP CPT Code Automation [facility] ACCOUNT BILL Comment: This liquid based ThinPrep(R) pap test was screened with the use of an image guided system. Human papillomavirus High Risk Negative Negative [facility] ACCOUNT BILL Comment: This high-risk HPV test detects thirteen high-risk types (16/18/31/33/35/39/45/51/52/56/58/59/68) without differentiation. . Pathology/Cytolog y ENTIRE VAGINA / Unknown 07/21/2017 10:20 AM MOTOR MECHANIC 07/21/2017 Narrative [facility] ACCOUNT BILL - 07/26/2017 6:08 PM MOTOR MECHANIC No. of containers..01 ThinPrep Vial Resulting Agency Comment [facility] [address] [facility] [place] [phone] Job Jerome MD LAB - PATHOLOGY/CYT OLOGY ORDERABLES [facility] ACCOUNT BILL [address] [place] [address] * OCCULT BLOOD FECES 1-3 SCREEN POC [...] Mammography Scanned Document MAMMO ORDERABLES Care Teams Freelance Digital Project Manager Relationship Specialty Start Date End Date Raul Fernandes MD [address] [facility] [address] [place] [address] PCP - General Internal Medicine 06/17/19 Job Jerome MD [address] [facility] [address] [place] [address] Obstetrics and Gynecology 01/18/21
--- OUTSIDE RECORDS SUMMARY | 2024-09-13 13:42 | XMS_ITS | Continuity of Care Document ---
Author Organization [facility] Address [address] [place] [address] Phone Care Team Providers Care Security Systems Engineer Name Role Phone Jason Ring DO Unavailable Unavailable Advance Directives Directive Yes / No Effective Date File Name No Information Encounters Encounter Description Practice Location Reason(s) For Visit Diagnoses Date Provider Providers Copied on Encounter [facility], [address], [place], [place], [id number], tel:[phone] [facility] No Information Jhonathan Gonsales. [address] [place], [address], . tel:[phone] Referring Provider: Erich Baldwin, [address], [place], [address]. tel:[phone] Family History Family Member Type Diagnosis Age At Onset No Information Payers Payer name Insurance type Covered republican ID Authoriza tion(s) No Information Social History [...]
[2024-09-13 14:58] LABS: Basophils Percent Auto 0.6 % (0.2-1.2); Eosinophils Absolute Auto 0.5 K/mm3 (0-0.3); Eosinophils Percent Auto 7.2 % (0-4.4); Hematocrit 42.6 % (37.0-47.0); Hemoglobin 13.7 g/dL (12.0-15.0); Immature Granulocyte Absolute 0.03 K/mm3 (0.00-0.031); Immature Granulocyte Percent A 0.4 % (0-0.5); Lymphocytes Absolute Auto 1.85 K/mm3 (0.9-3.2); Lymphocytes Percent Auto 25.7 % (18.3-44.2); Mean Corpuscular HGB Conc 32.2 g/dl (32-36); Mean Corpuscular Hemoglobin 27.2 pg (26-34); Mean Corpuscular Volume 84.5 fl (80-100); Mean Platelet Volume 9.3 fl (7.4-10.4); Monocytes Absolute Auto 0.3 K/mm3 (0.1-0.6); Monocytes Percent Auto 4.7 % (2.6-8.5); Neutrophils Absolute Auto 4.4 K/mm3 (1.3-6.7); Neutrophils Percent Auto 61.4 % (45.5-73.1); Platelet Count Result 277 k/mm3 (150-375); Red Blood Count 5.04 M/mm3 (4.2-5.4); Red Cell Distribution Width 14.6 % (11.5-14.5); White Blood Count 7.2 K/mm3 (4.5-10.0)
[2024-09-13 15:16] LABS: Alanine Aminotransferase 15 U/L (6-35); Albumin Level 3.4 g/dL (3.5-5.1); Alkaline Phosphatase 63 U/L (38-126); Anion Gap 9 mmol/L (4-12); Aspartate Amino Transferase 28 U/L (14-36); Bilirubin,Total 0.8 mg/dL (0.2-1.3); Blood Urea Nitrogen 12 mg/dL (7-17); Calcium 8.8 mg/dL (8.4-10.2); Carbon Dioxide 28 mmol/L (22-30); Chloride 104 mmol/L (98-107); Estimated Glomerular Filt Rate > 60; Glucose 89 mg/dL (65-110); Potassium 4.2 mmol/L (3.4-5.0); Sodium 141 mmol/L (137-145)
== END 2024-09-13 13:33 | disposition home or self-care (01) ==
LOC: ANHLAB 13:33
PROVIDERS: PCP Internal Medicine; Visit Provider Physician Assistant Surgical
DX: M17.0 Bilateral primary osteoarthritis of knee (principal); Z79.1 Long term (current) use of non-steroidal anti-inflammatories (NSAID)
CPT/HCPCS: 36415; 80053; 85025

== ENCOUNTER 2024-12-19 15:16 | Outpatient (CLI) | payer MEDICARE, SELFPAY ==
--- NOTE | ~2024-12-19 | CT_ITS ---
EXAMINATION: CT sinus wo con DATE: 12/19/2024 15:42 INDICATION: Chronic maxillary sinusitis TECHNIQUE: Computed tomography (CT) of the paranasal sinuses was performed without intravenous contra st. The dose-length product was 284.29 mGy-cm. Automated exposure control and iterative reconstructio n technique were employed. COMPARISON: CT dated 08/22/2024 FINDINGS: There is mild mucosal thickening right maxillary sinus. There is mild mucosal thickening of the ethmoid sinuses. Rightward nasal septal deviation. Ostiomeatal units are patent. Mastoids are pn eumatized. No midline shift. IMPRESSION: 1. Mild right maxillary sinus disease. Reviewed, dictated and finalized at location A.
--- OUTSIDE RECORDS SUMMARY | 2024-12-19 15:20 | XMS_ITS | Clinical Summary ---
Author Organization [facility] [email or web address] Address [address] [place] [address] Care Team Providers Care Laborer/Key Man Name Role Phone Raul Fernandes MD Primary Care Provider [phone] Job Jerome MD Unavailable [phone] Source Comments [facility],non-owned Affiliates and Associated Physician Practices is amultiple site organization consisting of ambulatory clinics and hospital sitesin [place], [place], [place] and [place]. This disclosure is being madepursuant to the Care Everywhere program and may not contain all information available regarding this patient. Last updated 18.[facility] [email or web address] Allergies Active Allergy Reactions Criticality Noted Date Comments Ciprofloxacin Unknown 06/17/2019 Medications * Be aware that medications may not be up to date on this document. Alwaysverify current medications with the patient. diclofenac potassium (CAMBIA) 50 MG powder pack [...] Date Recorded PHQ2 TOTAL SCORE 0 04/03/2022 Comments No Sex and Gender Information Value Date Recorded Sex Assigned at Not on file Legal Sex Female 9:36 AM MANAGER BAKERY Gender Identity Not on file Sexual Orientation Not on file Last Filed Vital Signs Vital Sign Reading Time Taken Comments Blood Pressure 160/80 04/06/2022 2:37 PM CDT Pulse - - Temperature - - Respiratory Rate - - Oxygen Saturation - - Inhaled Oxygen Concentration - - Weight 97.1 kg (214 lb) 04/06/2022 2:37 PM CDT Height 162.6 cm (5' 4) 04/06/2022 2:37 PM CDT Body Mass Index [...] SCREENING FOR DIABETES 07/21/2017 COVID-19 VACCINE ( season) 2024 08/05/2021, 10/13/2020, 09/02/2020 MAMMOGRAM 06/22/2024 06/22/2022, 09/02/2021, 08/15/2017 (Done Outside Per Report), Additional history exists DEPRESSION SCREENING 07/24/2024 04/06/2022 MEDICARE AWV CALENDAR YEAR 2024 INFLUENZA VACCINE (Season Ended) 2025 Respiratory Syncytial Virus (RSV) Vaccine Pt: or [...] complete this topic MENINGOCOCCAL (Group B) VACCINE SHARED DECISION-MAKING Aged Out No longer eligible based on patient's age to complete this topic MENINGOCOCCAL GROUPS A/C/Y/W VACCINE Aged Out No longer eligible based on patient's age to complete this topic Procedures Procedure Name Priority Date/Time Associated Diagnosis Comments DEXA BONE DENSITY 2 SITES Routine 06/22/2022 MAMMO BILAT SCREENING Routine 06/22/2022 Well woman exam from Last 3 Months or Most Recently Relevant to Health Maintenance Results * MAMMO BILAT SCREENING (06/22/2022) Anatomical Region Laterality Modality Breast Bilateral Mammography 06/22/2022 us Job Jerome MD MAMMO ORDERABLES Final Resu lt * DEXA BONE DENSITY 2 SITES (06/22/2022) Anatomical Region Laterality Modality Other us Job Jerome MD DEXA ORDERABLES Final Resul t from Last 3 Months or Most Recently Relevant to Health Maintenance Insurance [facility] MANAGED MEDICARE ADV [facility] MEDICARE ADV Care Teams Laborer/Key Man Relationship Specialty Start Date End Date Raul Fernandes MD [address] [facility] [address] [place] [address] PCP - General Internal Medicine 06/17/19 Job Jerome MD [address] [facility] [address] [place] [address] Obstetrics and Gynecology 01/18/21
--- OUTSIDE RECORDS SUMMARY | 2024-12-19 15:20 | XMS_ITS | Continuity of Care Document ---
Author Organization [facility] Address [address] [place] [address] Phone Care Team Providers Care Tool Mechanic Name Role Phone Jason Ring DO Unavailable Unavailable Advance Directives Directive Yes / No Effective Date File Name No Information Encounters Encounter Description Practice Location Reason(s) For Visit Diagnoses Date Provider Providers Copied on Encounter [facility], [address], [place], [place], [id number], tel:[phone] [facility] No Information Jhonathan Gonsales. [address] [place], [address], . tel:[phone] Referring Provider: Erich Baldwin, [address], [place], [address]. tel:[phone] Family History Family Member Type Diagnosis Age [...]
--- OUTSIDE RECORDS SUMMARY | 2024-12-19 15:20 | XMS_ITS | Data Portability ---
Author Organization [place] [employer], Main Office Address [address] [place] [address] Care Team Providers Care Managed Care Director Name Role Phone STAN FERNANDES Primary Care Provider STAN FERNANDES Referring Provider ROSHNI HARE Food [employer]list RANDY HEART Orthopedic Surgeon Assessment Encounter Date Assessment Date Assessment LastModified by Organization Details LastModified Time 07/01/2024 07/01/2024 Time spent with patient included: preparing to see patient by reviewing tests, obtaining and reviewing history, medical examination and evaluation, counseling and educating the patient, ordering medications and tests, documenting clinical information in EHR, independently interpreting results and communicating results to the patient for a total of 40 minutes. [email or web address] Not available 07/01/2024 12:43:09 Plan of Treatment Reminders Order Date Submit Date Provider Last Modified By Organization Details Last Modified Time Details Appointments Medicare Wellness 15 2024 08:45A M Stan Fernandes MD Not available Not available Not available Lab None recorded. Referral cardiolog ist referral - Please call patient to schedule. 2023 024 [email or web address] 2 [place], [address] Esha , [address], [address], 10/01/2024 08:19:28 Procedures None recorded. Surgeries septoplas ty (SURG) 2024 025 Not available 10/01/2024 09:57:41 endoscopy , nasal/sin us, w/ maxillary antrostom y & tissue removal (SURG) 2024 025 Not available 10/01/2024 09:57:41 endoscopy , nasal/sin us, w/ total ethmoidec iveth (SURG) 2024 025 Not available 10/01/2024 09:57:[address], sinuses, w/o contrast - STEALTH PROTOCOL. PLEASE GIVE PATIENT A COPY OF DISK. THANKS! 2024 025 [facility], [address], [address] [address], [place], [address], 12/12/2024 11:35:24 XR, sinuses, paranasal , 3 or more view [email or web address] [place] [address], [facility] [address], [place], [address], 07/11/2024 12:47:39 Medication Orders ipratropi um bromide 42 mcg (0.06 %) nasal spray 2024 025 [facility], [address], [place], [address], 08/08/2024 13:07:21 Patient TargetsNo targets recorded. Patient Instructions Encounter Date Encounter Id Patient Instructions Last Modified By Organization Details Last Modified Time 08/08/2024 [id number] She will have a sinus CT completed. We will follow-up on results become available. Prescribed ipratropium bromide for posterior rhinorrhea. Discussed how to use this medication properly. Given the multiple rounds of antibiotics and steroids she wishes to hold off on any further antibiotics and/or steroids pending the results of her sinus CT. Not available 08/08/2024 13:19:42 09/12/2024 [id number] we discussed the alternatives and she would like to proceed to balloon the septoplasty and sinus treatment [email or web address] Not available 09/12/2024 15:25:43 12/12/2024 [id number] because this is her 2nd course of antibiotics postop we will go ahead and repeat a sinus CT [email or web address] Not available 12/12/2024 11:16:23 Reason for Referral Advisory Internship Referral for Dy spnea on exertion Please call patient to schedule. Referring Physician: Roshni Hare, Pulmonary Disease, Encounter Date: 07/01/2024 Results Created Date Observation Date Name Description Value Unit Range Abnormal Flag Note LastModifiedBy Organization Detail LastModifiedTime 07/04/20 24 07/05/2024 IGG, SUBCL ASSES (1-4) immunoglobul in g, qn, serum 1136 mg/dL 586-16 02 Not Available [facility] ([facility]) [address], [place], [address], 07/09/2024 07:37:27 07/04/20 24 07/05/2024 IGG, SUBCL ASSES (1-4) IgG, subclass 1 636 mg/dL 248-81 0 Not Available [facility] ([facility]) [address] [place], [address], 07/09/2024 07:37:27 07/04/20 24 07/05/2024 IGG, SUBCL ASSES (1-4) IgG, subclass 2 346 mg/dL 130-55 5 Not Available [facility] ([facility]) [address] [place], [address], 07/09/2024 07:37:27 07/04/20 24 07/05/2024 IGG, SUBCL ASSES (1-4) IgG, subclass 3 117 mg/dL 15-102 above high normal Not Available [facility] ([facility]) [address] [place], [address], 07/09/2024 07:37:27 07/04/20 24 07/05/2024 IGG, SUBCL ASSES (1-4) IgG, subclass 4 39 mg/dL 2-96 Not Available [facility] ([facility]) [address] [place], [address], 07/09/2024 07:37:27 07/04/20 24 07/04/2024 ALLER GENS W/TOT AL IGE AREA 8 class description Commen t Level s of Speci fic IgE Class Descr iptio n of Class ----- ----- ----- ----- ----- -- ----- ----- ----- ----- ----- < 0.10 0 Negat heather 0.10 - 0.31 0/I Equiv ocal/ Low 0.32 - 0.55 I Low 0.56 - 1.40 II Moder ate 1.41 - 3.90 III High 3.91 - 19.00 IV Very High 19.01 - 100.0 0 V Very High >100. 00 Very High Not Available [facility] ([facility]) [address] [place], [address], 07/09/2024 07:37:28 07/04/20 24 07/09/2024 ALLER GENS W/TOT AL IGE AREA 8 immunoglobul in E, total 8 IU/mL 6-495 Not Available [facility] ([facility]) [address] [place], [address], 07/09/2024 07:37:28 07/04/20 24 07/09/2024 ALLER GENS W/TOT AL IGE AREA 8 M973-BkE D pteronyssinu s <0.10 kU/L class 0 Not Available [facility] ([facility]) [address] [place], [address], 07/09/2024 07:37:28 07/04/20 24 07/09/2024 ALLER GENS W/TOT AL IGE AREA 8 Z406-IrX D farinae <0.10 kU/L class 0 Not Available [facility] ([facility]) [address] [place], [address], 07/09/2024 07:37:28 07/04/20 24 07/09/2024 ALLER GENS W/TOT AL IGE AREA 8 S994-XoS CAT dander <0.10 kU/L class 0 Not Available [facility] ([facility]) [address], [place], [address], 07/09/2024 07:37:28 07/04/20 24 07/09/2024 ALLER GENS W/TOT AL IGE AREA 8 X583-MsQ dog dander <0.10 kU/L class 0 Not Available [facility] ([facility]) [address] [place], [address], 07/09/2024 07:37:28 07/04/20 24 07/09/2024 ALLER GENS W/TOT AL IGE AREA 8 S712-BoK mouse urine <0.10 kU/L class 0 Not Available [facility] ([facility]) [address] [place], [address], 07/09/2024 07:37:28 07/04/20 24 07/09/2024 ALLER GENS W/TOT AL IGE AREA 8 n122-QwG bermuda grass <0.10 kU/L class 0 Not Available [facility] ([facility]) [address] [place], [address], 07/09/2024 07:37:28 07/04/20 24 07/09/2024 ALLER GENS W/TOT AL IGE AREA 8 u364-VgO fernando grass <0.10 kU/L class 0 Not Available [facility] ([facility]) [address] [place], [address], 07/09/2024 07:37:28 07/04/20 24 07/09/2024 ALLER GENS W/TOT AL IGE AREA 8 O689-KzO cockroach, yakut <0.10 kU/L class 0 Not Available [facility] ([facility]) [address] [place], [address], 07/09/2024 07:37:28 07/04/20 24 07/09/2024 ALLER GENS W/TOT AL IGE AREA 8 C588-SdW penicillium chrysogen <0.10 kU/L class 0 Not Available [facility] ([place] [facility]) [address], [place], [address], 07/09/2024 07:37:28 07/04/20 24 07/09/2024 ALLER GENS W/TOT AL IGE AREA 8 F204-NaQ cladosporium herbarum <0.10 kU/L class 0 Not Available [facility] ([place] [facility]) [address], [place], [address], 07/09/2024 07:37:28 07/04/20 24 07/09/2024 ALLER GENS W/TOT AL IGE AREA 8 C058-HjC aspergillus fumigatus <0.10 kU/L class 0 Not Available [facility] ([facility]) [address], [place], [address], 07/09/2024 07:37:28 07/04/20 24 07/09/2024 ALLER GENS W/TOT AL IGE AREA 8 H446-EsV alternaria alternata <0.10 kU/L class 0 Not Available [facility] ([place] [facility]) [address], [place], [address], 07/09/2024 07:37:28 07/04/20 24 07/09/2024 ALLER GENS W/TOT AL IGE AREA 8 P211-XtI maple/box elder <0.10 kU/L class 0 Not Available [facility] ([facility]) [address], [place], [address], 07/09/2024 07:37:28 07/04/20 24 07/09/2024 ALLER GENS W/TOT AL IGE AREA 8 M206-FrE cedar, mountain <0.10 kU/L class 0 Not Available [facility] ([place] [facility]) [address], [place], [address], 07/09/2024 07:37:28 07/04/20 24 07/09/2024 ALLER GENS W/TOT AL IGE AREA 8 E230-HwP oak, white <0.10 kU/L class 0 Not Available [facility] ([place] [facility]) [address], [place], [address], 07/09/2024 07:37:28 07/04/20 24 07/09/2024 ALLER GENS W/TOT AL IGE AREA 8 Y614-SbQ elm, north korean <0.10 kU/L class 0 Not Available [facility] ([place] [facility]) [address], [place], [address], 07/09/2024 07:37:28 07/04/20 24 07/09/2024 ALLER GENS W/TOT AL IGE AREA 8 B186-EhD walnut <0.10 kU/L class 0 Not Available [facility] ([place] [facility]) [address], [place], [address], 07/09/2024 07:37:28 07/04/20 24 07/09/2024 ALLER GENS W/TOT AL IGE AREA 8 U001-LeC maple leaf sycamore <0.10 kU/L class 0 Not Available [facility] ([place] [facility]) [address], [place], [address], 07/09/2024 07:37:28 07/04/20 24 07/09/2024 ALLER GENS W/TOT AL IGE AREA 8 H291-UsW cottonwood <0.10 kU/L class 0 Not Available [facility] ([place] [facility]) [address], [place], [address], 07/09/2024 07:37:28 07/04/20 24 07/09/2024 ALLER GENS W/TOT AL IGE AREA 8 H740-CzF alan, white <0.10 kU/L class 0 Not Available [facility] ([place] [facility]) [address], [place], [address], 07/09/2024 07:37:28 07/04/20 24 07/09/2024 ALLER GENS W/TOT AL IGE AREA 8 K579-IlW pecan, hickory <0.10 kU/L class 0 Not Available [facility] ([place] [facility]) [address], [place], [address], 07/09/2024 07:37:28 07/04/20 24 07/09/2024 ALLER GENS W/TOT AL IGE AREA 8 I380-AeK white mulberry <0.10 kU/L class 0 Not Available [facility] ([place] [facility]) [address], [place], [address], 07/09/2024 07:37:28 07/04/20 24 07/09/2024 ALLER GENS W/TOT AL IGE AREA 8 V792-WoZ ragweed, short <0.10 kU/L class 0 Not Available [facility] ([place] [facility]) [address], [place], [address], 07/09/2024 07:37:28 07/04/20 24 07/09/2024 ALLER GENS W/TOT AL IGE AREA 8 I549-HaF thistle, mosotho <0.10 kU/L class 0 Not Available [facility] ([place] [facility]) [address], [place], [address], 07/09/2024 07:37:28 07/04/20 24 07/09/2024 ALLER GENS W/TOT AL IGE AREA 8 F197-ToM pigweed, common <0.10 kU/L class 0 Not Available [facility] ([place] [facility]) [address], [place], [address], 07/09/2024 07:37:28 07/04/20 24 07/09/2024 ALLER GENS W/TOT AL IGE AREA 8 I976-WvF rough marshelder <0.10 kU/L class 0 Not Available [facility] ([place] [facility]) [address] [place], [address], 07/09/2024 07:37:28 10/08/19 25 10/11/2024 PATHO LOGY SERVI CE pathserv SEE COMMEN T See separ ate patho logy repor t. Not Available [facility] ([facility] [address] [place], [address], 10/11/2024 10:20:45 06/13/20 24 06/12/2024 XR, chest , 2 view No observ ation record ed. [email or web address] Not Available 2023 08:41:12 07/03/20 24 06/28/2024 compl ete PFT w/ post [facility] hodil ator lyndsay metry * No observ ation record ed. [facility] (Pulmonary) [facility] [address], [place], [address], 07/03/2024 09:22:08 07/08/20 24 07/04/2024 XR, sinus es, paran beth, 3 or more view No observ ation record ed. [email or web address] Not Available 2024 10:24:34 07/12/20 24 07/11/2024 DEXA No observ ation record ed. [email or web address] Not Available 2024 11:55:29 08/23/19 25 08/22/2024 CT, sinus es, w/o contr ast No observ ation record ed. [facility] [address] [facility] [address], [place], [address], 08/26/2024 15:45:56 09/05/19 25 09/05/2024 CT, sinus es, w/o contr ast No observ ation record ed. [facility] [address], [place], [address], 09/05/2024 11:28:19 10/02/19 25 09/27/2024 US, echoc ardio gram, trans thora cic, compl ete, w/ color flow No observ ation record ed. [email or web address] Not Available 2024 17:02:23 Result Notes None recorded. Problems Name Problem SNOMED Code Status Onset Date Resolution Date Notes Provider Name and Address Organization Details Recorded Time Chronic back pain 791736684 Active Not Available [facility] 3 12:55:08 Erythema nodosum 55611746 Completed Not Available [facility] 3 12:55:08 Vitamin D deficienc y 06202034 Active 2022 Not Available [facility] 3 12:55:08 Fever 531234202 Completed 202108/12/2022 Not Available [facility] 3 12:55:08 Osteoarth ritis 995019979 Active Not Available [facility] 3 12:55:09 Acute urinary tract infection 643620878 Completed 202108/12/2022 Aurelia Jimenez LPN null, [place] [facility] 5 14:10:00 Pain of bilateral knee joints 62357298064 4104 Active 2021 Not Available [facility] 3 12:55:09 Hyperlipi demia 61753877 Active 2022 Not Available [facility] 3 12:55:09 Essential hypertens ion 05098304 Active 2022 Not Available [facility] 3 12:55:09 Urinary tract infectiou s disease 41920448 Completed Nelida Schumacher MA null, [place] [facility] 4 12:36:15 Hyperglyc emia 76876478 Active 2022 Not Available [facility] 3 12:55:09 Bilateral osteoarth ritis of knees 21582578116 9107 Active 2022 CATARINO Ponce null, [place] [facility] 3 15:37:46 Eruption 559659060 Active 2022 Maxine Ewing CMA null, [place] [facility] 3 14:03:07 Acute sinusitis 57244373 Active 2022 Aurelia Jimenez LPN null, [place] [facility] 3 14:28:24 Chest pain 26748756 Active 2022 Stan Fernandes MD [address], [address], [place], [address] , [place] [facility] 3 14:34:24 Pain of left knee joint 12010042726 4107 Active 2023 Carmenza Maria CMA null, [place] [facility] 4 12:57:33 Upper respirato ry infection 33641926 Active 2023 Stan Fernandes MD [address], [address], [place], [address] , [place] [facility] 4 12:31:01 Persisten t cough 446640499 Active 2023 Stan Fernandes MD [address], [address], [place], [address] , [place] [facility] 4 11:39:44 Dyspnea on exertion 41834895 Active 2023 Roshni Hare NP [address], [address], [place], [address] , [place] [facility] 4 12:23:31 Productiv e cough 13236452 Active 2023 Ludmila Ross RN null, [place] [facility] 5 09:59:10 Urinary tract infectiou s disease 77597857 Active 2023 Nelida Schumacher MA null, [place] [facility] 4 12:36:15 Chronic recurrent sinusitis 510325770 Active 2024 Roshni Hare NP [address], [address], [place], [address] , [place] [facility] 5 09:18:45 Chronic sinusitis 62998351 Active 2024 Ludmila Ross RN null, [place] [facility] 5 12:04:30 Posterior rhinorrhe a 76358257 Active 2024 AUSTIN Love [address], [address], [place], [address] , [facility] 5 13:06:41 Acute urinary tract infection 819134702 Active 2024 Aurelia Jimenez LPN [facility], [facility] 5 14:10:00 Deviated nasal septum 990493316 Active 2024 Heath Carolina MD [address] [facility], [address] [address], [place], [address] , [facility] 5 15:24:33 Chronic maxillary sinusitis 46889784 Active 2024 Heath Carolina MD [address] [facility], [facility] [address], [place], [address] , [facility] 5 11:16:06 Chronic ethmoidal sinusitis 66288925 Active 2024 Heath Carolina MD [address] [facility], [address] [address], [place], [address] , [facility] 5 15:25:04 Problem Notes None recorded. Procedures Surgical History Date Name Laterality Status Provider Name and Address Organization Details Recorded Time 10/08/19 25 nasal septoplasty completed MARCOS Gale [facility] 10/16/2024 08:12:40 10/08/19 25 endoscopic ethmoidectomy completed MARCOS Gale [facility] 10/16/2024 08:12:54 10/08/19 25 nasal endoscopy with maxillary antrostomy completed Ludmila Ross RN [facility] 10/16/2024 08:13:06 10/08/19 25 ENDOSCOPY, NASAL/SINUS, W/ TOTAL ETHMOIDECTOMY (SURG) completed Ludmila Ross RN [facility] 10/16/2024 09:03:08 06/12/20 24 Medicare Wellness CPT Code, subsequent completed MARCOS Hampton Kaitlyn [facility] 06/12/2024 11:59:37 Hysterectomy completed Not Available [facility] 09/21/2022 12:52:41 section completed Not Available [facility] 09/21/2022 12:52:41 Hip surgery completed Not Available [facility] 09/21/2022 12:52:41 Imaging Results None recorded. Procedure Notes None recorded. Medical Equipment None Reported. Allergies Allergen ID Allergen Name Allergen Category Reaction Reaction Severity Criticality Documentation Date Start Date Code Code System Note Provider Name and Address Organization Details Recorded Time 96640 Macrobid medicatio n vomiting Not available Not available 09/21/2022 58303 1 RxNorm Not Available [facility] 3 13:00:28 25569 Cipro medicatio n Not available Not available Not available 09/21/2022 61048 3 RxNorm Not Available [facility] 3 13:00:28 Medications Name Sig Start Date Stop Date Status Note LastModified by Organization Details LastModified Time cyclobenz aprine 10 mg tablet Take 1 tablet twice a day by oral route as needed. 07/31 completed GENERIC FOR FLEXERIL Not Available Not Available Not Available amoxicill in 500 mg capsule TAKE 1 CAPSULE BY MOUTH EVERY 8 HOURS 06/12 completed Not Available Not Available Not Available doxycycli ne hyclate 100 mg capsule Take 1 capsule twice a day by oral route for 7 days. 09/12 completed Not Available Not Available Not Available azithromy ace 250 mg tablet TAKE 2 TABLETS BY MOUTH ON DAY 1, AND THEN TAKE 1 TABLET BY MOUTH ONCE A DAY ON DAY 2 THROUGH DAY 5 05/20 completed Not Available Not Available Not Available benzonata te 200 mg capsule TAKE 1 CAPSULE BY MOUTH THREE TIMES DAILY 06/12 completed Not Available Not Available Not Available prednison e 20 mg tablet take 3 tablets po x 2 days, then 2 tablets po x 2 days and then 1 tablets po x 2 days 07/01 completed Not Available Not Available Not Available metronida zole 500 mg tablet Take 1 tablet every 8 hours by oral route. active Not Available Not Available No t Available levofloxa ace 250 mg tablet Take 1 tablet every day by oral route for 3 days. active Not Available Not Available No t Available sulfameth oxazole 800 mg-trimet hoprim 160 mg tablet TAKE 1 TABLET BY MOUTH EVERY 12 HOURS FOR URINARY INFECTIO N FOR 3 DAYS active Not Available Not Available No t Available amoxicill in 500 mg tablet take 2gms (4 tablets) PO 1 hr prior to dental procedur e active Not Available Not Available No t Available Kenalog 10 mg/mL suspensio n for injection in office 05/21 completed [facility]: [id number] -[phone] Not Available Not Available Not Available cephalexi n 500 mg capsule 02/04 completed Not Available Not Available Not Available Xylocaine 20 mg/mL (2 %) injection solution In office injectio n administ ered by the provider 04/20 completed Not Available Not Available Not Available diclofena c sodium 50 mg tablet,de layed release TAKE 1 TABLET BY MOUTH TWICE DAILY active Not Available Not Available No t Available ergocalci ferol (vitamin D2) 1,250 mcg (50,000 unit) capsule TAKE ONE CAPSULE BY MOUTH ONE TIME PER WEEK 06/14 completed Not Available Not Available Not Available estradiol 0.01% (0.1 mg/gram) vaginal cream INSERT 1 GRAM INTO THE VAGINA EVERY 7 DAYS 05/21 completed Not Available Not Available Not Available methylpre dnisolone 4 mg tablets in a dose pack TAKE DIRECTED ON PACKAGE LABEL active Not Available Not Available No t Available ipratropi um bromide 42 mcg (0.06 %) nasal spray USE 2 SPRAY(S) IN EACH NOSTRIL THREE TIMES DAILY active Not Available Not Available No t Available Cipro 250 mg tablet Take 1 tablet every 12 hours by oral route for 7 days. 07/31 completed Not Available Not Available Not Available cefdinir 300 mg capsule Take 1 capsule every 12 hours by oral route for 10 days. 2024 active Not Available Not Available Not Avai lable doxycycli ne hyclate 100 mg tablet TAKE 1 TABLET BY MOUTH TWICE DAILY FOR 7 DAYS 10/16 completed Not Available Not Available Not Available oxycodone 5 mg tablet 03/26 completed Not Available Not Available Not Available nitrofura ntoin monohydra te/macroc rystals 100 mg capsule TAKE 1 CAPSULE BY MOUTH EVERY 12 HOURS FOR 5 DAYS 09/15 completed Not Available Not Available Not Available Prevalite 4 gram oral powder TAKE 1 SCOOP 3 TIMES A DAY BY ORAL ROUTE 09/04 completed Not Available Not Available Not Available lidocaine (PF) 10 mg/mL (1 %) injection solution In office injectio n administ ered by the provider 10/27 completed [facility]: 0409-427 6-17 Not Available Not Available Not Available lidocaine (PF) 5 mg/mL (0.5 %) injection solution In office injectio n administ ered by the provider 04/20 completed Not Available Not Available Not Available Suprep Bowel Prep Kit 17.5 gram-3.13 gram-1.6 gram oral solution 06/14 completed Not Available Not Available Not Available ropivacai ne (PF) 5 mg/mL (0.5 %) injection solution in office 05/21 completed [facility] 31053-91 4- Not Available Not Available Not Available Eliquis 2.5 mg tablet 02/04 completed Not Available Not Available Not Available ID NOW COVID-19 Test Kit TEST DIRECTED TODAY 04/20 completed Not Available Not Available Not Available Vitals Date Recorded Body height Body mass index (BMI) Body weight Body temperature Provider Name and Address Organization Details Last Updated DateTime 08/08/2024 165.1 cm 31.1 kg/m2 24145.34 g 97.7 [degF] Ludmila Ross RN [facility] [employer] 08/08/2024 11:18:22 Date Recorded Body height Body mass index (BMI) Body weight Body temperature Provider Name and Address Organization Details Last Updated DateTime 09/12/2024 165.1 cm 30.7 kg/m2 43686.15 g 97.8 [degF] Ludmila Ross RN [facility] [employer] 09/12/2024 15:03:19 Date Recorded Body height Body mass index (BMI) Body weight Body temperature Provider Name and Address Organization Details Last Updated DateTime 10/16/2024 165.1 cm 30.3 kg/m2 40169.81 g 97.7 [degF] Ludmila Ross RN [facility] [employer] 10/16/2024 09:32:43 Date Recorded Body height Body mass index (BMI) Body weight Body temperature Provider Name and Address Organization Details Last Updated DateTime 12/12/2024 165.1 cm 31.3 kg/m2 58752.37 g 97.7 [degF] Ludmila Ross RN [facility] [employer] 12/12/2024 10:51:15 Date Recorded Body height Body mass index (BMI) Body weight Body temperature Heart rate Oxygen saturation Oxygen saturation in Arterial blood by Pulse oximetry Systolic blood pressure Diastolic blood pressure Provider Name and Address Organization Details Last Updated DateTime 4 165.1 cm 31 kg/m2 44311.1 8 g 98.3 [degF] 71 /min 97 % 97 % 124 mm[Hg] 74 mm[Hg] Natasha Rico MA [employer] 4 10:40:06 Social History Question Answer Notes LastModified by Organization Details LastModified Time Tobacco Smoking Status Former Smoker Nati Singleton RN null, [employer] [facility] [employer] 06/12/2024 12:03:39 Do You Have An Advance Directive? Yes Requested A Copy 06/12/2024 [email or web address] Information not available 06/12/2024 Are You Blind Or Do You Have Difficulty Seeing? No [email or web address] Information not available 06/12/2024 Is Blood Transfusion Acceptable In An Emergency? Yes [email or web address] Information not available 06/12/2024 What Is Your Level Of Caffeine Consumption? Moderate [email or web address] Information not available 06/12/2024 In The 14 Days Before Symptom Onset, Have You Had Close Contact With A Laboratory-confi rmed COVID-19 While That Case Was Ill? No [email or web address] Information not available 06/12/2024 In The 14 Days Before Symptom Onset, Have You Had Close Contact With A Person Who Is Under Investigation For COVID-19 While That Person Was Ill? No [email or web address] Information not available 06/12/2024 Are You Deaf Or Do You Have Serious Difficulty Hearing? No [email or web address] Information not available 06/12/2024 What Type Of Diet Are You Following? REGULAR [email or web address] Information not available 06/12/2024 What Is The Highest Grade Or Level Of School You Have Completed Or The Highest Degree You Have Received? [id number] [email or web address] Information not available 06/12/2024 Do You Have An Electrostatic Air Filter? No Information not available 06/13/2024 How Many Days Of Moderate To Strenuous Exercise, Like A Brisk Walk, Did You Do In The Last 7 Days? 0 [email or web address] Information not available 06/12/2024 Have There Been Any Changes To Your Family Or Social Situation? Yes Caring For Family Members With Health And Mental Health Issues 05/2024 [email or web address] Information not available 06/12/2024 What Is The Fluoride Status Of Your Home? Fluoridated [email or web address] Information not available 06/12/2024 Are There Any Guns Present In Your Home? No [email or web address] Information not available 06/12/2024 Do You Have A Humidifier? No Information not available 06/13/2024 Do You Use Insect Repellent Routinely? No [email or web address] Information not available 06/12/2024 Where Do You Live? [facility] [email or web address] Information not available 06/12/2024 Do You Have A Medical Power Of Dial Polisher? Yes [email or web address] Information not available 06/12/2024 Do You Have Moisture Problems In Your Home? No Information not available 06/13/2024 What Was The Date Of Your Most Recent Tobacco Screening? 07/01/2024 Information not available 07/01/2024 How Many Children Do You Have? 2 [email or web address] Information not available 06/12/2024 Have You Ever Been Counseled For Unhealthy Alcohol Use? No [email or web address] Information not available 06/12/2024 Do You Have Any Pets? No [email or web address] Information not available 06/12/2024 What Is Your Relationship Status? [email or web address] Information not available 06/12/2024 Do You Use Your Seat Belt Or Car Seat Routinely? Yes [email or web address] Information not available 06/12/2024 Are You Sexually Active? Yes [email or web address] Information not available 06/12/2024 Do You Have Smoke And Carbon Monoxide Detectors In Your Home? Yes [email or web address] Information not available 06/12/2024 Are You Passively Exposed To Smoke? No [email or web address] Information not available 06/12/2024 Are There Any Smokers In Your House? No [email or web address] Information not available 06/12/2024 How Much Tobacco Do You Smoke? 1 PPW [email or web address] Information not available 06/12/2024 What Types Of Sporting Activities Do You Participate In? None [email or web address] Information not available 06/12/2024 Do You Use Sunscreen Routinely? Yes [email or web address] Information not available 06/12/2024 Has Tobacco Cessation Counseling Been Provided? No [email or web address] Information not available 06/12/2024 Have You Recently Traveled Abroad? No Cruise To [place] Information not available 07/01/2024 Do You Have Difficulty Walking Or Climbing Stairs? No [email or web address] Information not available 06/12/2024 Do You Have Any Dietary Restrictions? No [email or web address] Information not available 06/12/2024 Sex: Unknown Functional Status Question Answer Note LastModified by Organizat ion Details LastModified Time Do you use any illicit or recreational drugs? No [email or web address] Information not available 06/12/2024 What is your level of alcohol consumption? Occasional [id number] Information not available 09/21/2022 Are you currently employed? No [email or web address] Information not available 06/12/2024 Have you been exposed to chemicals or toxins? not that aware of Information not available 06/13/2024 Do you have transportation difficulties? No [email or web address] Information not available 06/12/2024 Are you able to walk? YESWOREST [email or web address] Information not available 06/12/2024 Do you have difficulty doing errands alone? No [email or web address] Information not available 06/12/2024 Are you able to care for yourself? Yes [email or web address] Information n ot available 06/12/2024 What is your occupation? retired [id number] Information not available 09/21/2022 Do you have difficulty dressing or bathing? No [email or web address] Information not available 06/12/2024 What is your exercise level? None [email or web address] Information not available 06/12/2024 Mental Status Question Answer Note LastModified by Organizat ion Details LastModified Time Do you feel stressed (tense, restless, nervous, or anxious, or unable to sleep at night)? [id number] Information not available 06/12/2024 Do you have difficulty concentrating, remembering or making decisions? No [email or web address] Information no t available 06/12/2024 Family History Relationship Description Onset Age of this Age Resolved Age Notes LastModified by Organization Details LastModified Time Father Hypertensive disorder [id number] Not available 09/21/2022 12:52:41 Father Heart disease [email or web address].864 [id number] Not available 09/21/2022 12:52:41 Sister Hypertensive disorder [id number].457 [id number] Not available 09/21/2022 12:52:41 Maternal Grandfather Family history of malignant neoplasm [email or web address].687 [id number] Not available 09/21/2022 12:52:41 Maternal Grandmother Family history of malignant neoplasm [email or web address].766 [id number] Not available 09/21/2022 12:52:42 Paternal Grandfather Family history of malignant neoplasm MIGRATION.726 [id number] Not available 09/21/2022 12:52:42 Paternal Grandmother Family history of malignant neoplasm MIGRATION.257 [id number] Not available 09/21/2022 12:52:42 Sister Myringotomy and insertion of tympanic ventilation tube Not available 2024 11:15:45 Medical History Condition Response HAVE YOU BEEN HOSPITALIZED OR SEEN IN [facility] ER IN THE PAST YEAR ? Y URINARY/BLADDER/KIDNEY PROBLEMS Y ARTHRITIS Y Gynecological History Statement/Question Response Date of Last Mammogram Most Recent Bone Density Obstetrics History GPAL:G 0 P 0 0 0 0 Immunizations Vaccine Type Date Status Note Provider Nam e and Address Organization Details Recorded Time Influenza, high-dose, quadrivalent, PF 3 completed CATARINO Juárez, [place] - [place] [employer] 05/30/2023 16:36:00 COVID-19, mRNA, LNP-S, PF, 100 mcg/0.5mL dose or 50 mcg/0.25mL dose 2 completed Not Available [facility] 09/21/2022 13:00:18 pneumococcal polysaccharide PPV23 3 completed Not Available [facility] 09/21/2022 13:00:18 Pneumococcal conjugate PCV 13 9 completed Not Available [facility] 09/21/2022 13:00:18 Past Encounters Encounter ID Performer Location Encounter Start Date Encounter Closed Date Diagnosis/Indication Diagnosis SNOMED-CT Code Diagnosis ICD10 Code Diagnosis Note [id number] Randy Heart MD Kaitlyn[facility] [address] [facility] [address] [place] [address] 10/23/2020 00:00:00 10/25/2020 17:25:27 [id number] Randy Heart MD Kaitlyn_[address] [address] 02/04/2021 00:00:00 02/04/2021 10:49:57 [id number] MD KAYLEEN Strickland_[facility] [place] [address] [place] [address] 04/28/2021 00:00:00 04/28/2021 14:34:02 [id number] MD KAYLEEN Strickland[facility] [place] [address] [place] [address] 07/28/2021 00:00:00 07/28/2021 15:34:28 [id number] MD KAYLEEN Strickland[facility] [place] [address] [place] [address] 10/27/2021 00:00:00 10/27/2021 14:18:54 [id number] MD KAYLEEN Strickland[facility] [place] [address] [place] [address] 01/26/2022 00:00:00 01/26/2022 09:49:54 [id number] MD KAYLEEN Strickland[facility] [place] [address] [place] [address] 04/20/2022 00:00:00 04/20/2022 09:55:02 [id number] MD KAYLEEN Strickland[facility] [place] [address] [place] [address] 07/13/2022 00:00:00 07/13/2022 14:35:53 [id number] MD KAYLEEN Salomon[facility] [address] [place] [address] 08/16/2022 00:00:00 08/16/2022 13:10:18 [id number] MD KAYLEEN Salomon[facility] [address] [place] [address] 09/15/2022 00:00:00 09/15/2022 14:18:29 [id number] MD KAYLEEN [facility] [place] [address] [place] [address] 10/10/2022 15:29:28 10/10/2022 16:27:07 Bilateral osteoarthritis of knees [id number] 19230 M17.0 [id number] Randy Heart MD [facility] [place] [address] [place] [address] 01/06/2023 14:09:46 01/06/2023 14:33:31 Bilateral osteoarthritis of knees [id number] 45152 M17.0 [id number] Randy Heart MD [facility] [place] [address] [place] [address] 04/07/2023 09:58:43 04/07/2023 11:17:44 Bilateral osteoarthritis of knees [id number] 19159 M17.0 [id number] Stan Fernandes MD [facility] Internal Med [facility] [address] [facility] [place] [address] 05/30/2023 14:03:22 05/30/2023 15:02:35 Chest pain 51156715 R07.9 atypical , watch Osteoarthritis 616048508 M19.90 diclofenac helps Administra tion of influenza vaccine 04805960 Z23 [id number] Randy Heart MD [facility] [place] [address] [place] [address] 07/07/2023 10:11:25 07/07/2023 11:18:52 Bilateral osteoarthritis of knees 0331687454 66683 M17.0 [id number] Randy Heart MD [facility] [place] [address] [place] [address] 10/06/2023 08:54:17 10/06/2023 10:49:09 Bilateral osteoarthritis of knees [id number] 46017 M17.0 [id number] Stan Fernandes MD [facility] Internal Med [address] [facility] [place] [address] 05/21/2024 11:58:16 05/21/2024 12:40:24 Essential hypertension 64414868 I10 watch Osteoarthritis 336799455 M19.90 diclofenac helps Vitamin D deficiency 347 08511 E55.9 otc Adult heal th examination 373029707 Z00.00 Colonoscop y-06/11/20 08, 03/19/2019 Mammogram- 07/04/2019 DEXA- 07/04/2019 FLU- Hyperglycemia 06737051 R 73.9 Upper resp iratory infection 96110988 J06.9 Screening mammography 24 455861 Z12.31 Postmenopausal state 764 82070 Z78.0 [id number] Stan Fernandes MD [facility] [address] [place] [address] 06/12/2024 11:08:17 06/12/2024 12:14:13 Adult health examination 665505205 Z00.00 Colonoscop y-06/11/20, 03/19/2019 Mammogram- 07/04/2019 - scheduled in DecDEXA- 07/04/2019 FLU-Pneumo vax 23- 09/15/2022 Prevnar 13- 03/07/2019 Persistent cough 3686258 02 R05.3 Screening for disorder 406291751 Z13.9 [id number] Roshni Hare NP [facility] [place] [address] 06/13/2024 11:35:14 06/13/2024 17:06:33 Dyspnea on exertion 07151022 R06.09 R05.3 Lab work todayHad CXR done at [place] yesterday will need that recordPFT for baselineSh e will start on a daily Zyrtec or similar at night since it makes her sleepy-Ast erpro in the amTake Reflux medication dailyEncou rage patient to remain activeMay consider CT sinus if no significan t findingsfo llow-up once testing is complete-s ooner for any changes in breathing and increase use of inhaler [id number] Roshni Hare NP [facility] [address] [address] 07/01/2024 10:21:01 07/16/2024 16:46:13 Persistent cough 552819009 R05.3 Will do sinus x-ray to rule out chronic sinusitis- had improvemen t with doxycyclin e and prednisone but has occasional cough remain-gen l refer to ENT if continues with cough for scopeLab work was not all sent-will review and handle if needed Dyspnea on exertion 6084 5006 R06.09 R05.3 PFT preliminar y report from [facility] reviewed by Dr Abad-damian tive mild most likely due to body habitus but will await report from [facility] and will notify patient if any changesWil l refer to cardiology due to continued dyspnea, fatigue and strong family hx (has seen [facility] in past) Body mass index 30+ - obesity 390825730 Z68.31 [id number] MD [facility] [place] [address] [place] [address] 08/08/2024 10:51:36 08/08/2024 13:20:21 Chronic sinusitis 43556040 J32.9 Posterior rhinorrhea 758 49397 R09.82 [id number] Heath Carolina MD [facility] [place] [address] [place] [address] 09/12/2024 14:54:29 09/17/2024 12:16:59 Deviated nasal septum 229628059 J34.2 Chronic ma xillary sinusitis 31323130 J32.0 Chronic et hmoidal sinusitis 94028124 J32.2 [id number] Heath Carolina MD [facility] [place] [address] [place] [address] 10/16/2024 09:29:03 10/16/2024 10:15:35 Postoperative visit 669919727 Z48.89 10/07/2024 postoperat heather from a septoplast y, bilateral maxillary antrostomy , and ethmoidect chivo. She is healing well. Denies any complaints . Follow up as needed. [id number] Heath Carolina MD [facility] [place] [address] [place] [address] 12/12/2024 10:43:35 12/12/2024 11:17:06 Chronic maxillary sinusitis 87704341 J32.0 Health Concerns Section Related Observation LastModified by Organization Detai ls LastModified Time None Recorded Concern Status LastModified by Organization Details LastModified Time None Recorded Advance Directives Directive Y: requested a copy 06/12/20 Payers Encounter Date Sequence Insurance Name Policy Number Policy Melgar Covered Member ID Melgar Member ID Guarantor Name 07/01/2024 1 [facility] (MEDICARE REPLACEMENT/A DVANTAGE - HMO) [id number] Tiny Allen [id number] Tinyportia Allen 08/08/2024 1 [facility] (MEDICARE REPLACEMENT/A DVANTAGE - HMO) [id number] Tiny Neumann Yannaenger [id number] Tiny Neumann Yannaenger 09/12/2024 1 [facility] (MEDICARE REPLACEMENT/A DVANTAGE - HMO) [id number] Tiny Allen [id number] Tinyportia Rainesenger 10/16/2024 1 [facility] (MEDICARE REPLACEMENT/A DVANTAGE - HMO) [id number] Tiny Allen [id number] Tiny Neumann Yannaenger 12/12/2024 1 [facility] (MEDICARE REPLACEMENT/A DVANTAGE - HMO) [id number] Tiny Allen [id number] Tiny Allen Notes Date Note Type Note Provider Name and Address Organization Details Recorded Time 07/01/2024 text/html CoughReported bypatient.Quality:l oose; non productive; no hemoptysis;tight;pr oductive yellow sputum Severity:improving; still has occasional cough and globus sensation to throat-hoarseness Duration:intermitte nt; symptoms lasting over 2 weeks Timing:better Context:non-smoker; acid reflux Associated Symptoms:no wheezing ; no edema; no chest pain; no paroxysmal nocturnal dyspnea; no fever; no chills; no vomiting; no agitation; no sleep attacks;dyspnea with exertion;using 2extra pillows or sleeping upright (orthopnea);post nasal drip;daytime somnolence;heartbur n;snoring;nauseaNot es:Follow-up after testing-did not get all of the testing due to insurance cost-treated doxycycline and prednisone after CXR done 06/12/24 showing ? infiltrate, also noted pulmonary congestion-patient has a strong family cardiac hx-patient notes her cough has improved with the doxycycline and prednisone and taking a daily zyrtec and zantac but continues with dyspnea-denies chest pain but increased fatigueShe does note that she has had a tickle sensation often in the past which she can't place to why it happensShe is currently under a lot of stress due to family issuesPFT showed mild restriction most likely due to body habitusStarted 3 months ago after a cruise-worse after rainCAT-19 Roshni Hare NP [address] [facility], [place], [address], [employer] 07/01/2024 12:44:09 08/08/2024 text/html this patient has a past medical history significant for chronic back pain, HTN, osteoarthritis, and vitamin-D deficiency who presents to the office with a complaint of a chronic productive cough and nasal congestion, nasal drainage, and PND that began approximately 8 months ago. she reports having a viral upper respiratory infection at the onset of her initial symptoms. She reports seeing a trade mark attorney at the end of May in which a sinus x-ray was completed on 07/04/2024 revealing mucosal thickening in the right maxillary sinus. She was advised to use saline rinses, Astepro nasal spray, and Zantac without symptom relief. She reports that she has been on 4 rounds of antibiotics and steroids without symptom improvement. She notes that when she blows her nose she gets mucus out of her left nostril but little to none out of her right nostril. she states that she has not been using the Astepro nasal spray for quite some time due to the abnormal taste of the medication. AUSTIN Love [address] [facility], [facility] [address], [place], [address], [employer] 08/08/2024 13:19:46 09/12/2024 text/html this patient has chronic sinusitis as demonstrated on CT with septal deviation. She reports this has been going on since November of 2023. She has been on 4-5 rounds of antibiotics with only minimum improvement. She was also on Atrovent spray with no improvement. Heath Carolina MD [address] [facility], [place], [address], [employer] 09/12/2024 15:26:08 10/16/2024 text/html This patient presents to the office for postoperative visit from a septoplasty, bilateral maxillary antrostomy and ethmoidectomy that was completed on 10/07/2024. She reports overall feeling much better with a decrease in her symptoms that she was experiencing prior to surgery. She reports use of saline rinses and blowing her nose without difficulty. Denies any complaints. AUSTIN Love [address], [place] [address], [place], [address], [employer] 10/16/2024 10:15:00 12/12/2024 text/html this patient has a re-emergence of her chronic cough. She had sinus surgery and was placed on antibiotics which helped very well but she relapsed. She is currently on cefdinir again. Heath Carolina MD [address], [facility] [address], [place], [address], [employer] 12/12/2024 11:17:05 OBGyn Episode No OBEpisode recorded.
== END 2024-12-19 15:17 | disposition home or self-care (01) ==
PROVIDERS: PCP Internal Medicine; Visit Provider Otolaryngology
DX: J32.0 Chronic maxillary sinusitis (principal)
CPT/HCPCS: 70486

== ENCOUNTER 2025-03-05 12:45 | Outpatient (CLI) | payer MEDICARE, SELFPAY ==
--- OUTSIDE RECORDS SUMMARY | 2025-03-05 12:49 | XMS_ITS | Clinical Summary ---
Author Organization [facility] Address [address] [place] [address] Care Team Providers Care Seo Executive Name Role Phone Raul Fernandes MD Primary Care Provider + [phone] Job Jerome MD Unavailable [phone] Source Comments [facility],non-owned Affiliates and Associated Physician Practices is amultiple site organization consisting of ambulatory clinics and hospital sitesin [place] and [place]. This disclosure is being madepursuant to the Care Everywhere program and may not contain all information available regarding this patient. 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 MANAGED MEDICARE ADV [employer] MEDICARE ADV Care Teams Seo Executive Relationship Specialty Start Date End Date Raul Fernandes MD [address] [facility] [address] [place] [address] PCP - General Internal Medicine 06/17/19 Job Jerome MD [address] [facility] [address] [place] [address] Obstetrics and Gynecology 01/18/21
--- OUTSIDE RECORDS SUMMARY | 2025-03-05 12:49 | XMS_ITS | Clinical Summary ---
Author Organization [facility] Address [address] [place] [address] Care Team Providers Care Air Deodorizer Servicer Name Role Phone Unavailable Primary Care Provider Unavailabl e Social History Tobacco Use Types Packs/Day Years Used Date Smoking Tobacco: Never Assessed Comments Unknown Sex and Gender Information Value Date Recorded Sex Assigned at Not on file Legal Sex Female 7:25 AM CDT Gender Identity Not on file Sexual Orientation Not on file Plan of Treatment Health Maintenance Due Date Last Done Comments Colorectal Cancer Screening Colonoscopy (10 Years) 1953 Hepatitis C 1971 DTaP, Tdap and Td Vaccines ( 1 - Tdap) 1972 Mammogram Screening 1993 Pneumococcal Vaccine: 50+ Ye ars (1 of 1 - PCV) 2003 Zoster Vaccines (1 of 2) 2003 Dexa Scan (General) 2018 COVID-19 Vaccine ( - 2023-2 5 season) 2024 RSV Immunization or 60+ Years (1 - 1-dose 75+ series) 2028 Meningococcal B Vaccine Aged Out No l onger eligible based on patient's age to complete this topic Meningococcal Vaccine Aged Out No opal bertha eligible based on patient's age to complete this topic RSV Immunizations Under 20 Months Aged Out No longer eligible based on patient's age to complete this topic
[2025-03-05 14:16] LABS: Hematocrit 43.4 % (37.0-47.0); Hemoglobin 14.3 g/dL (12.0-15.0); Immature Granulocyte Percent A 0.4 % (0-0.5); Lymphocytes Absolute Auto 1.38 K/mm3 (0.9-3.2); Mean Corpuscular HGB Conc 32.9 g/dl (32-36); Mean Corpuscular Hemoglobin 28.1 pg (26-34); Mean Corpuscular Volume 85.3 fl (80-100); Nucleated Red Blood Cells Absolute Auto 0.000 K/mm3 (0.0-0.012); Nucleated Red Blood Cells Perc 0.0 % (0.0-0.2); Platelet Count Result 280 k/mm3 (150-375); Red Blood Count 5.09 M/mm3 (4.2-5.4); White Blood Count 8.2 K/mm3 (4.5-10.0)
[2025-03-05 14:29] LABS: Alanine Aminotransferase 15 U/L (6-35); Albumin Level 4.3 g/dL (3.5-5.1); Alkaline Phosphatase 67 U/L (38-126); Anion Gap 9 mmol/L (4-12); Aspartate Amino Transferase 33 U/L (14-36); Bilirubin,Total 1.3 mg/dL (0.2-1.3); Blood Urea Nitrogen 11 mg/dL (7-17); Calcium 9.3 mg/dL (8.4-10.2); Carbon Dioxide 27 mmol/L (22-30); Chloride 105 mmol/L (98-107); Estimated Glomerular Filt Rate > 60; Glucose 135 mg/dL (65-110); Potassium 3.9 mmol/L (3.4-5.0); Sodium 141 mmol/L (137-145); Total Protein 7.7 g/dL (6.3-8.2)
== END 2025-03-05 12:46 | disposition home or self-care (01) ==
PROVIDERS: PCP Internal Medicine; Visit Provider Physician Assistant Surgical
DX: M17.0 Bilateral primary osteoarthritis of knee (principal); Z79.1 Long term (current) use of non-steroidal anti-inflammatories (NSAID)
CPT/HCPCS: 36415; 80053; 85025